=== PATIENT | female | born 1940 | race Caucasian/White ===

== ENCOUNTER 2018-12-05 20:38 | Emergency (ER) | payer OTHER, MEDICARE | END 2018-12-06 00:33 | disposition home or self-care (01) | LOC: JER 12-06 00:33 ==

== ENCOUNTER 2019-01-26 10:37 | Inpatient (IN) | payer OTHER, MEDICARE ==
--- NOTE | 2019-01-26 10:54 | PDOC ---
History of Present Illness - General Chief Complaint: Syncope/Near Syncope Stated Complaint: Syncope/Near Syncope - History of Present Illness Initial Comments: The pt is a 78F w/ a history of asthma, HTN, DM who presents for evaluation s/p syncopal fall. The pt reports she was washing dishes for 15min, walking back to her chair, became dizzy, and then fell to the floor and hit her head. She was then able to get up into the chair and call her son for help. She felt dizzy for about an hour after. She denies chest pain before/after the incident. Currently she denies dizziness, HERNÁNDEZ, neck pain, chest pain, trouble breathing, N/ V, or changes in sensation. 01/26/19 10:53 Past History - Past Medical History Allergies/Adverse Reactions: Allergies Allergy/AdvReac Type Severity Reaction Status Date / Time Penicillins AdvReac Verified 12/05/18 21:24 Home Medications: Ambulatory Orders Glipizide [Glipizide Xl] 0 mg PO DAILY 12/05/18 Hydrochlorothiazide [Hctz -] 25 mg PO DAILY 12/05/18 Metformin HCl [Metformin HCl ER] 500 mg PO DAILY 12/05/18 Metoprolol Succinate 100 mg PO DAILY 12/05/18 Asthma: Yes COPD: No Diabetes: Yes HTN: Yes - Psycho Social/Smoking Cessation Hx Smoking History: Former smoker Have you smoked in the past 12 months: No Hx Alcohol Use: No Drug/Substance Use Hx: No Review of Systems - Review of Systems Able to Perform ROS?: Yes Comments:: GENERAL/CONSTITUTIONAL: No fever or chills. No weakness HEAD, EYES, EARS, NOSE AND THROAT: No change in vision. No change in hearing. No sore throat CARDIOVASCULAR: No chest pain or shortness of breath RESPIRATORY: Denies cough, hemoptysis GASTROINTESTINAL: No nausea, vomiting, diarrhea or constipation GENITOURINARY: No dysuria, frequency, or change in urination MUSCULOSKELETAL: No joint or muscle swelling or pain. No neck or back pain SKIN: No rash NEUROLOGIC: No headache, or change in strength/sensation ENDOCRINE: No increased thirst. No abnormal weight change HEMATOLOGIC/LYMPHATIC: No anemia, easy bleeding, or history of blood clots ALLERGIC/IMMUNOLOGIC: No hives or skin allergy 01/26/19 10:53 Is the patient limited Israeli proficient: No *Physical Exam - Physical Exam Comments: GENERAL: Awake, alert, and oriented to person/place/time, in no acute distress HEAD: No signs of trauma, normocephalic, atraumatic EYES: PERRLA, EOMI, sclera anicteric, conjunctiva clear ENT: Hearing grossly normal, nares patent, oropharynx clear without exudates. No uvular deviation. Moist mucosa NECK: No CTL spine TTP LUNGS: No distress, speaks in full sentences, clear to auscultation bilaterally HEART: Regular rate and rhythm, normal S1 and S2, systolic murmur appreciated, peripheral pulses normal and equal bilaterally ABDOMEN: Soft, nontender, normoactive bowel sounds. No guarding, no rebound EXTREMITIES: Normal inspection, Normal range of motion, no edema. No clubbing or cyanosis NEUROLOGICAL: Cranial nerves II through XII grossly intact. Normal speech, no focal sensorimotor deficits SKIN: Warm, Dry 01/26/19 10:53 ED Treatment Course - LABORATORY CBC & Chemistry Diagram: 01/26/19 11:51 01/26/19 11:51 Medical Decision Making - Medical Decision Making The pt is a 78F w/ a history of asthma, HTN, DM who presents for evaluation s/p syncopal fall. ED Course CMP, CBC, Cardiac profile CXR ECG CT Head w/o 01/26/19 11:15 ECG w/ sinus bradycardia; HR 52; QTc 418; TWI in aVL; left axis deviation; no ADRIÁN 01/26/19 13:07 No leukocytosiso anemia Lytes wnl No JOHANNY LFTs wnl Trop I 0.24 BNP w/l CT head pending 01/26/19 13:11 CT head w/o acute bleed ASA 162mg PO once Plan for admission for syncope and troponinemia 01/26/19 14:15 Discharge - Discharge Information Problems reviewed: Yes Clinical Impression/Diagnosis: Elevated troponin Syncope Qualifiers: Syncope type: unspecified Qualified Code(s): R55 - Syncope and collapse Condition: Fair - Admission Yes - Follow up/Referral Referrals: Felipe Pollard MD [Primary Care Provider] - - Patient Discharge Instructions - Post Discharge Activity
--- NOTE | 2019-01-26 12:14 | PDOC ---
Attending Attestation - Resident Resident Name: Miguelangel Aponte - ED Attending Attestation I have performed the following: I have examined & evaluated the patient, The case was reviewed & discussed with the resident, I agree w/resident's findings & plan, Exceptions are as noted - HPI HPI: 01/26/19 12:13 Ms Noble is a 78-year-old female presenting to the emergency department via EMS status post a fall while at home. Patient has a history of hypertension, hyperlipidemia, diabetes. She woke in her usual state of health this morning, was washing dishes, and was about to go take her shower. Patient notes that she became vertiginous, and this improved briefly. She became vertiginous again and fell landing on her bottom, and then striking her head. No loss of consciousness. Mild nausea, no vomiting. No headache, no tinnitus. Patient states about last week she had some similar symptoms which lasted for several minutes but she was able to get herself to a seated position with no difficulty. Prior to this no prior episodes of vertigo or dizziness. No associated chest pain, shortness of breath, diaphoresis 01/26/19 12:14 - Physicial Exam PE: 01/26/19 12:15 GENERAL: The patient is in no acute distress. ENT: Ears normal, nares patent, oropharynx clear without exudates. Moist mucous membranes. NECK: Normal range of motion, supple LUNGS: Breath sounds equal, clear to auscultation bilaterally. No wheezes, and no crackles. HEART:Regular rate and rhythm, normal S1 and S2 without murmur, rub or gallop. ABDOMEN: Soft, nontender, normoactive bowel sounds. EXTREMITIES: Normal range of motion, no edema. NEUROLOGICAL: Cranial nerves II through XII grossly intact. Normal speech. No focal neurological deficits. No nystagmus Motor 5/5 all extremities No dysmetria or dysdiadokinesis SKIN: Warm, Dry, normal turgor, no rashes or lesions noted. 01/26/19 13:37 - Medical Decision Making 01/26/19 12:17 78-year-old female presents to the emergency department due to vertigo/ dizziness and a fall. No preceding chest pain or shortness of breath. No focal weakness or numbness. Patient's blood pressure notably elevated (son states she gets anxious at the hospital) Differential diagnosis is broad and includes Benign positional vertigo, Mnire's disease, posterior CVA, electrolyte abnormality, ACS, arrhythmia We will do: Labs EKG Chest x-ray CT head Admission EKG: Sinus rhythm, rate of 52 bpm, left axis deviation, no ST elevation or depression , T wave inversion noted in aVL 01/26/19 13:35 BP persistently 240/100 HR 50s Hydralazine ordered 01/26/19 13:37 Laboratory Tests 01/26/19 01/26/19 01/26/19 11:51 11:51 11:51 WBC 6.5 Hgb 12.9 Hct 39.7 Plt Count 209 PTT (Actin FS) 31.9 BUN Creatinine Creatine Kinase 55 Troponin I 0.24 H Urine Blood Urine Nitrite Ur Leukocyte Esterase 01/26/19 01/26/19 11:51 11:53 WBC Hgb Hct Plt Count PTT (Actin FS) BUN 26.2 H Creatinine 0.9 Creatine Kinase Troponin I Urine Blood Negative Urine Nitrite Negative Ur Leukocyte Esterase Negative Clinical impression: hypertensive urgency, initial presentation
[2019-01-26 12:30] LABS: BASO % 0.8 % (0-2.0); EOS % 0.4 % (0-4.5); HEMATOCRIT 39.7 % (32.4-45.2); HEMOGLOBIN 12.9 GM/dL (10.7-15.3); LYMPH % 13.7 % (8-40); MCH 27.3 pg (25.7-33.7); MCHC 32.4 g/dl (32.0-36.0); MEAN CELL VOLUME 84.3 fl (80-96); MEAN PLT VOLUME 8.9 fl (7.5-11.1); NEUT % 78.1 % (42.8-82.8); PLATELET COUNT 209 K/MM3 (134-434); RBC 4.71 M/mm3 (3.60-5.2); RDW 14.5 % (11.6-15.6); WHITE BLOOD COUNT 6.5 K/mm3 (4.0-10.0)
[2019-01-26] MEDS ORDERED: hydrALAZINE HCL 20 MG/ML VIAL IVPUSH ONE (12:51)
[2019-01-26 12:53] LABS: ALBUMIN 3.9 g/dl (3.4-5.0); BILIRUBIN,TOTAL 0.4 mg/dL (0.2-1); BLOOD UREA NITROGEN 26.2 mg/dL (7-18); CREATININE 0.9 mg/dL (0.55-1.3); POTASSIUM 4.3 mmol/L (3.5-5.1); TOT PROT 7.1 g/dl (6.4-8.2)
[2019-01-26] MEDS ORDERED: hydrALAZINE HCL 20 MG/ML VIAL ONE ×2 (12:53→20:29)
[2019-01-26 13:00] LABS: N-TERMINAL BNP 374.7 pg/ml (5-450)
[2019-01-26 13:02] LABS: PH,URINE 7.5 (5.0-8.0); URINE APPEARANCE CLEAR; URINE BILIRUBIN NEGATIVE (NEGATIVE); URINE COLOR YELLOW; URINE GLUCOSE (UA) NEGATIVE (NEGATIVE); URINE KETONE NEGATIVE (NEGATIVE); URINE LEUK ESTERASE NEGATIVE (NEGATIVE); URINE NITRITE NEGATIVE (NEGATIVE); URINE PROTEIN TRACE (NEGATIVE); URINE UROBILINOGEN 0.2 mg/dL (0.2-1.0)
[2019-01-26] MEDS ORDERED: ASPIRIN 81 MG CHEWABLE TABLETS ONE (14:36)
[2019-01-26] MEDS ORDERED: ASPIRIN 81 MG CHEWABLE TABLETS PO ONE (14:43)
[2019-01-26] MEDS ORDERED: hydrALAZINE HCL 20 MG/ML VIAL IVPUSH PRN (15:25)
[2019-01-26] MEDS ORDERED: ACETAMINOPHEN 325 MG TABLET (FP) PO PRN (15:27)
--- NOTE | 2019-01-26 15:34 | HP ---
CHIEF COMPLAINT: fall PCP: Dr. Calderon HISTORY OF PRESENT ILLNESS: Patient is a 78 y/o female with a history of asthma, HTN, and DM who presents s/ p fall. Patient states for the last few days she has been feeling dizzy and that she feels like she is spinning. These symptoms are worse with bending down and standing up. Patient takes her medications at 6 am. Around 9 am she was feeling dizzy so she went to sit on a chair, she feels that she misjudged the chair and fell back hitting her head and landing on the right side. She did not lose consciousness. Patient reports she has not had any other recent falls. Patient typically walks with a walker. She used to take her blood pressure but her machine broke this week. Patient reports when she visited her doctor she was told her blood pressure was good. Patient denies any recent sick contacts, dysuria, hematuria, nausea, chest pain, shortness of breath, or blurry vision. Patient does not follow with a pelletizer. ER course was notable for: (1) (2) (3) Recent Travel: PAST MEDICAL HISTORY: asthma, HTN, and DM PAST SURGICAL HISTORY: likely CABG( 11 years ago), per patient she had a blocked vessel, bladder lifting Social History: Smoking: denies Alcohol: denies Drugs: denies Allergies Penicillins Adverse Reaction (Verified 12/05/18 21:24) HOME MEDICATIONS: Home Medications Medication Instructions Recorded Glipizide [Glipizide Xl] 0 mg PO DAILY 12/05/18 Hydrochlorothiazide [Hctz -] 25 mg PO DAILY 12/05/18 Metformin HCl [Metformin HCl ER] 500 mg PO DAILY 12/05/18 Metoprolol Succinate 100 mg PO DAILY 12/05/18 REVIEW OF SYSTEMS CONSTITUTIONAL: Absent: fever, chills, diaphoresis, generalized weakness, malaise, loss of appetite, weight change HEENT: Absent: rhinorrhea, nasal congestion, throat pain, throat swelling, difficulty swallowing, mouth swelling, ear pain, eye pain, visual changes CARDIOVASCULAR: Absent: chest pain, syncope, palpitations, irregular heart rate, lightheadedness , peripheral edema RESPIRATORY: Absent: cough, shortness of breath, dyspnea with exertion, orthopnea, wheezing, stridor, hemoptysis GASTROINTESTINAL: Absent: abdominal pain, abdominal distension, nausea, vomiting, diarrhea, constipation, melena, hematochezia GENITOURINARY: Absent: dysuria, frequency, urgency, hesitancy, hematuria, flank pain, genital pain MUSCULOSKELETAL: Absent: myalgia, arthralgia, joint swelling, back pain, neck pain SKIN: Absent: rash, itching, pallor HEMATOLOGIC/IMMUNOLOGIC: Absent: easy bleeding, easy bruising, lymphadenopathy, frequent infections ENDOCRINE: Absent: unexplained weight gain, unexplained weight loss, heat intolerance, cold intolerance NEUROLOGIC: dizziness, Absent: headache, focal weakness or paresthesias, unsteady gait, seizure, mental status changes, bladder or bowel incontinence PSYCHIATRIC: Absent: anxiety, depression, suicidal or homicidal ideation, hallucinations. PHYSICAL EXAMINATION Vital Signs Temperature 98.7 F 01/26/19 10:40 Pulse Rate 54 L 01/26/19 12:50 Respiratory Rate 20 01/26/19 12:50 Blood Pressure 180/110 H 01/26/19 12:50 O2 Sat by Pulse Oximetry (%) 97 01/26/19 13:54 GENERAL: Awake, alert, and fully oriented, in no acute distress. HEAD: Normal with no signs of trauma. EYES: Pupils equal, round and reactive to light, extraocular movements intact, EARS, NOSE, THROAT: Moist mucous membranes. LUNGS: Breath sounds equal, clear to auscultation bilaterally. No wheezes, and no crackles. No accessory muscle use. HEART: Regular rate and rhythm, ABDOMEN: Soft, nontender, not distended, normoactive bowel sounds, no guarding, no rebound, no masses. MUSCULOSKELETAL: Normal range of motion at all joints. tenderness to palpation of R shoulder R hip and R knee, able to tolerate movement, knees large LOWER EXTREMITIES: 2+ pulses, warm, well-perfused. No peripheral edema. NEUROLOGICAL: Cranial nerves II-XII intact. PSYCHIATRIC: Cooperative. Good eye contact. Appropriate mood and affect. SKIN: lower extremity b/l skin changes, dark coloration without ulceration CBC, BMP 01/26/19 11:51 01/26/19 11:51 ASSESSMENT/PLAN: Patient is a 78 y/o female with a history of asthma, HTN, and DM who presents s/ p fall. #Fall - likely 2/2 to hypertensive urgency with mechanical fall, r/o ACS, vascular , hypoglycemia - Head CT: no evidence of hemorrhage, edema, no infarct noted - f/u echo, carotid US - f/u XR of R shoulder, hip, and knee - UA negative - closely control bp, patient likely needs additional medication as an outpatient - fall risk precautions #HTN urgency - likely causing dizziness - continue home metoprolol and HCTZ - Losartan 50 daily - hydralazine 10 prn - f/u cardio - f/u lipids #tropinemia - likely 2/2 to HTN urgency, patient asymptomatic - monitor trops, first .24, f/u second - ASA 162 given #DM - BGM ACHS - SS - monitor sugars closely, watch for hypoglycemia #DVT ppx - Lovenox 40 sq daily FEN - low sodium, diabetic diet Dispo: monitor on tele, f/u with PT to discuss dispo of patient Visit type - Emergency Visit Emergency Visit: Yes ED Registration Date: 01/26/19 Care time: The patient presented to the Emergency Department on the above date and was hospitalized for further evaluation of their emergent condition. - New Patient This patient is new to me today: Yes Date on this admission: 01/28/19 - Critical Care Critical Care patient: No ATTENDING PHYSICIAN STATEMENT I saw and evaluated the patient. I reviewed the resident's note and discussed the case with the resident. I agree with the resident's findings and plan as documented. SUBJECTIVE: OBJECTIVE: ASSESSMENT AND PLAN:
--- NOTE | 2019-01-26 15:38 | PN ---
Teaching Attending Note Name of Resident: Michell Shay ATTENDING PHYSICIAN STATEMENT I saw and evaluated the patient. I reviewed the resident's note and discussed the case with the resident. I agree with the resident's findings and plan as documented with exceptions below. SUBJECTIVE: 78 yof with PMhx of HTN, ?CAD s/p CABG 12 years ago, NIDDM, obesity, Thyroid nodule, peripheral neuropathy comes with 3 days of dizziness. Reports intermittent spinning sensation more with change in position and bending over. Today had similar symptoms while bending over, when fell on her right side on the floor, called 911. Denies any chest pain, palpitations, dyspnea, fevers, chills, recent URI like illness, poor oral intake, abdominal or urinary symptoms. Denies any h/o exertional chest pain or dyspnea, orthopnea, PND, leg swelling. Also reports snoring at night but no prior sleep study. Prior ED visit in 11/2018 with nose bleed, when noted with SBP 190s-200s. OBJECTIVE: Vital Signs Period Temp Pulse Resp BP Sys/Pruitt Pulse Ox Last 24 Hr 98.7 F 54-57 16-20 180-247/81-120 97-100 Intake & Output 01/23/19 01/24/19 01/25/19 01/26/19 23:59 23:59 23:59 23:59 Weight 180 lb GENERAL: Awake, alert, and fully oriented, in no acute distress. HEAD: Normal with no signs of trauma. EYES: Pupils equal, round and reactive to light, extraocular movements intact, sclera anicteric, conjunctiva clear. No lid lag. EARS, NOSE, THROAT: Ears normal, nares patent, oropharynx clear without exudates. Moist mucous membranes. NECK: Normal range of motion, supple, no JVD noted LUNGS: Breath sounds equal, clear to auscultation bilaterally. No wheezes, and no crackles. No accessory muscle use. HEART: Regular rate and rhythm, normal S1 and S2 ABDOMEN: Soft, obese, NT throughout, no voluntary or involuntary guarding or rigidity, pos bowel sounds MUSCULOSKELETAL: some pain with right shoulder and right knee movements, but full ROM right shoulder, limitation bilateral knee ROm (chronic from arthritis per patient), pos DP pulses UPPER EXTREMITIES: 2+ pulses, warm, well-perfused. No cyanosis. No clubbing. No peripheral edema. LOWER EXTREMITIES: 1+ non pitting LE edema with varicosities and chronic hyperpigmentation with stasis dermatitis NEUROLOGICAL: AAox3, power 5/5 except right knee limited by pain, facial symmetry, Cranial nerves II-XII intact. Normal speech. PSYCHIATRIC: Cooperative. Good eye contact. Appropriate mood and affect. SKIN: Warm, dry, normal turgor, no rashes or lesions noted, normal capillary refill. Home Medications Medication Instructions Recorded Glipizide [Glipizide Xl] 0 mg PO DAILY 12/05/18 Hydrochlorothiazide [Hctz -] 25 mg PO DAILY 12/05/18 Metformin HCl [Metformin HCl ER] 500 mg PO DAILY 12/05/18 Metoprolol Succinate 100 mg PO DAILY 12/05/18 Glimepiride 2 mg PO DAILY 01/26/19 Metformin HCl [Glucophage] 1,000 mg PO DAILY 01/26/19 Active Medications Acetaminophen (Tylenol -) 650 mg PO Q6H PRN PRN Reason: PAIN LEVEL 6-10 Enoxaparin Sodium (Lovenox -) 40 mg SQ DAILY [place] Hydralazine HCl (Apresoline Injection -) 10 mg IVPUSH Q6H PRN PRN Reason: HYPERTENSION Insulin Aspart (Novolog Vial Sliding Scale -) 0 vial SQ ACHS [place]; Protocol Losartan Potassium (Cozaar -) 50 mg PO DAILY [place] Laboratory Results - last 24 hr 01/26/19 01/26/19 01/26/19 11:14 11:51 11:51 WBC RBC Hgb Hct MCV MCH MCHC RDW Plt Count MPV Absolute Neuts (auto) Neutrophils % Lymphocytes % Monocytes % Eosinophils % Basophils % Nucleated RBC % PTT (Actin FS) 31.9 Sodium Potassium Chloride Carbon Dioxide Anion Gap BUN Creatinine Est GFR (CKD-EPI)AfAm Est GFR (CKD-EPI)NonAf POC Glucometer 133 Random Glucose Calcium Total Bilirubin AST ALT Alkaline Phosphatase Creatine Kinase 55 Troponin I 0.24 H B-Natriuretic Peptide 374.7 Total Protein Albumin Urine Color Urine Appearance Urine pH Ur Specific [place] Urine Protein Urine Glucose (UA) Urine Ketones Urine Blood Urine Nitrite Urine Bilirubin Urine Urobilinogen Ur Leukocyte Esterase 01/26/19 01/26/19 01/26/19 11:51 11:51 11:53 WBC 6.5 RBC 4.71 Hgb 12.9 Hct 39.7 MCV 84.3 MCH 27.3 MCHC 32.4 RDW 14.5 Plt Count 209 MPV 8.9 Absolute Neuts (auto) 5.1 Neutrophils % 78.1 Lymphocytes % 13.7 Monocytes % 7.0 Eosinophils % 0.4 Basophils % 0.8 Nucleated RBC % 0 PTT (Actin FS) Sodium 139 Potassium 4.3 Chloride 104 Carbon Dioxide 29 Anion Gap 6 L BUN 26.2 H Creatinine 0.9 Est GFR (CKD-EPI)AfAm 71.98 Est GFR (CKD-EPI)NonAf 62.11 POC Glucometer Random Glucose 136 H Calcium 9.0 Total Bilirubin 0.4 AST 11 L ALT 15 Alkaline Phosphatase 79 Creatine Kinase Troponin I B-Natriuretic Peptide Total Protein 7.1 Albumin 3.9 Urine Color Yellow Urine Appearance Clear Urine pH 7.5 Ur Specific [place] 1.004 L Urine Protein Trace Urine Glucose (UA) Negative Urine Ketones Negative Urine Blood Negative Urine Nitrite Negative Urine Bilirubin Negative Urine Urobilinogen 0.2 Ur Leukocyte Esterase Negative EKG: NSR, LVH, T inversion in aVL CXR/CT brain results reviewed ASSESSMENT AND PLAN: 78 yof with PMhx of HTN, ?CAD s/p CABG 12 years ago, NIDDM, obesity, Thyroid nodule, peripheral neuropathy admitted with vertigo, hypertensive urgency and elevated troponin -Hypertensive urgency -Elevated troponin, demand from above, vs r/o ACS -Vertigo/dizziness, suspect from above, rather than vertiginous or neurological process -?CAD s/p CABG 12 years ago -NIDDM -Obesity -Thyroid nodule -Peripheral neuropathy Plan: Prior ED visit noted with uncontrolled BP. Unclear if has poorly controlled BP though patient denies. Currently asymptomatic, would avoid aggressive control unless new concerns. continue Toprol XL/HCTZ. Start losartan 50 mg daily. Hydralazine prn Recommended outpatient sleep study. telemetry, cycle troponin, Cardiology consult, 2D echo. Continue ASA. Check lipid panel. Neuro checks Right shoulder/Right knee xrays, Fall precautions, PT eval. ISS, hold oral hypoglycemics DVTPPX lovenox Dispo pending clinical improvement. Plan discussed with patient and son at bedside in detail, all questions answered Care co-ordinated with ED total admit time 65 min
[2019-01-26] MEDS: LOSARTAN POTASSIUM 50 MG TABLET (FP) PO SCH (16:40)
[2019-01-26] MEDS ORDERED: LOSARTAN POTASSIUM 50 MG TABLET (FP) ONE (16:42)
--- NOTE | 2019-01-26 16:49 | EKG ---
Test Reason : Blood Pressure : / mmHG Vent. Rate : 052 BPM Atrial Rate : 052 BPM P-R Int : 162 ms QRS Dur : 088 ms QT Int : 450 ms P-R-T Axes : 018 -32 072 degrees QTc Int : 418 ms SINUS BRADYCARDIA LEFT AXIS DEVIATION MODERATE VOLTAGE CRITERIA FOR LVH, MAY BE NORMAL VARIANT ABNORMAL ECG WHEN COMPARED WITH ECG OF 13-FEB-2006 01:06, VENT. RATE HAS DECREASED BY 33 BPM Confirmed by RAINA NORTON, FRANSICO ([id number]) on 01/26/2019 4:49:03 PM Referred By: Confirmed By:FRANSICO PARIS MD
[2019-01-26] MEDS: INSULIN SLIDING SCALE (NOVOLOG) 1 VIAL SQ SCH ×2 (18:37→22:57)
--- NOTE | 2019-01-26 21:10 | CON.CARD ---
Consult Consult Specialty:: Cardiology Referred by:: Hospitalist Reason for Consultation:: Cardiac evaluation - History of Present Illness Chief Complaint: Post fall History of Present Illness: Patient is a 78 year old female with underlying history of CAD s/p CABG at [facility], HTN, DM and history of bronchial asthma who presents after a fall hitting her occipital head onto the floor. She states that she felt dizzy just prior to the fall. She denies LOC. She denies chest pain, shortness of breath or palpitations. She denies paroxysmal nocturnal dyspnea or orthopnea. She denies fever or chills. She denies nausea, vomiting, diarrhea or abdominal pain. She denies headache or lightheadedness at this time. She denies prior syncopal episodes. - History Source History Provided By: Patient, Family Member Limitations to Obtaining History: No Limitations - Past Medical History Cardio/Vascular: Yes: CAD, HTN Pulmonary: Yes: Asthma Endocrine: Yes: Diabetes Mellitus - Past Surgical History Past Surgical History: Yes: CABG - Alcohol/Substance Use Hx Alcohol Use: No - Smoking History Smoking history: Former smoker Have you smoked in the past 12 months: No Home Medications - Allergies Allergies/Adverse Reactions: Allergies Allergy/AdvReac Type Severity Reaction Status Date / Time Penicillins AdvReac Verified 12/05/18 21:24 - Home Medications Home Medications: Ambulatory Orders Hydrochlorothiazide [Hctz -] 25 mg PO DAILY 12/05/18 Metoprolol Succinate 100 mg PO DAILY 12/05/18 Glimepiride 2 mg PO DAILY 01/26/19 Meloxicam 15 mg PO DAILY 01/26/19 Metformin HCl [Glucophage] 1,000 mg PO DAILY 01/26/19 Olopatadine HCl [Pazeo] 2.5 ml DAILY 01/26/19 Review of Systems - Review of Systems Constitutional: denies: Chills, Fever Cardiovascular: denies: Chest Pain, Palpitations, Shortness of Breath Respiratory: denies: Cough, Hemoptysis, Orthopnea, PND, SOB, SOB on Exertion, Wheezing Gastrointestinal: denies: Abdominal Pain, Constipation, Diarrhea, Melena, Nausea , Rectal Bleeding, Vomiting Genitourinary: denies: Dysuria, Hematuria Musculoskeletal: denies: Back Pain Neurological: denies: Dizziness, Headache, Seizure, Syncope Vital Signs: Vital Signs Temperature 98.7 F 01/26/19 10:40 Pulse Rate 65 01/26/19 20:43 Respiratory Rate 20 01/26/19 20:43 Blood Pressure 161/68 01/26/19 20:43 O2 Sat by Pulse Oximetry (%) 97 01/26/19 20:43 Eyes: Yes: PERRL HENT: Yes: Atraumatic Neck: Yes: Supple Respiratory: Yes: CTA Bilaterally Gastrointestinal: Yes: Normal Bowel Sounds, Soft. No: Tenderness Cardiovascular: Yes: Regular Rate and Rhythm JVD: No PMI: Non-Displaced Heart Sounds: Yes: S1, S2. No: Gallop Murmur: Yes: Systolic Murmur, Grade 1 Edema: No - Other Data Labs, Other Data: CBC, BMP 01/26/19 11:51 01/26/19 11:51 Troponin, BNP 01/26/19 01/26/19 11:51 18:00 Troponin I 0.24 H 0.24 H B-Natriuretic Peptide 374.7 Sinus bradycardia, LVH Echo: Pending Imaging - Results Chest X-ray: Report Reviewed (Unremarkable) X-ray: Report Reviewed (No fractures) Cat Scan: Report Reviewed (Head CT unremarkable) EKG: Report Reviewed Problem List - Problems (1) Demand ischemia Code(s): I24.8 - OTHER FORMS OF ACUTE ISCHEMIC HEART DISEASE (2) CAD (coronary artery disease) Code(s): I25.10 - ATHSCL HEART DISEASE OF [place] CORONARY ARTERY W/O ANG PCTRS (3) H/O coronary artery bypass surgery Code(s): Z95.1 - PRESENCE OF AORTOCORONARY BYPASS GRAFT (4) Diabetes mellitus Code(s): E11.9 - TYPE 2 DIABETES MELLITUS WITHOUT COMPLICATIONS (5) Bronchial asthma Code(s): J45.909 - UNSPECIFIED ASTHMA, UNCOMPLICATED (6) Elevated troponin Code(s): R79.89 - OTHER SPECIFIED ABNORMAL FINDINGS OF BLOOD CHEMISTRY Assessment/Plan 1. Post mechanical fall with no visible injury, denies LOC, doubt syncope 2. CAD s/p CABG, angina pectoris 3. HTN 4. DM 5. History of bronchial asthma 6. Demand ischemia PLAN: 1. Serial cardiac enzyme. Document troponin peak 2. Echocardiography to assess LV/RV and valvular function 3. Continue Metoprolol ER 100 mg QD and uptitrate Losartan (currently 50 mg QD) 4. ASA 5. Continue HCTZ as tolerated 6. Obtain Hgb A1C and fasting lipid panel 7. Statin if clinically indicated 8. DVT prophylaxis 9. Further cardiac workup can be followed as outpatient Dave Mohr MD
[2019-01-27 02:32] VITALS: BMI 26.1
[2019-01-27] MEDS: INSULIN SLIDING SCALE (NOVOLOG) 1 VIAL SQ SCH ×4 (06:20→21:20)
[2019-01-27 06:35] LABS: HEMATOCRIT 37.4 % (32.4-45.2); HEMOGLOBIN 12.4 GM/dL (10.7-15.3); MCH 27.6 pg (25.7-33.7); MCHC 33.3 g/dl (32.0-36.0); MEAN PLT VOLUME 8.2 fl (7.5-11.1); PLATELET COUNT 194 K/MM3 (134-434); RDW 14.4 % (11.6-15.6); WHITE BLOOD COUNT 6.9 K/mm3 (4.0-10.0)
[2019-01-27 07:02] LABS: ALBUMIN 3.3 g/dl (3.4-5.0); BILIRUBIN,TOTAL 0.5 mg/dL (0.2-1); BLOOD UREA NITROGEN 31.7 mg/dL (7-18); CALCIUM 8.5 mg/dL (8.5-10.1); CHOLESTEROL 203 mg/dL (50-200); CREATININE 1.1 mg/dL (0.55-1.3); HDL CHOLESTEROL 36 mg/dL (40-60); LDL CHOLESTEROL (ONLY SJRH) 136 mg/dL (5-100); MAGNESIUM 2.4 mg/dL (1.8-2.4); PHOSPHOROUS 3.4 mg/dL (2.5-4.9); POTASSIUM 3.9 mmol/L (3.5-5.1); TRIGLYCERIDES 145 mg/dL (0-150)
[2019-01-27] MEDS: HYDROCHLOROTHIAZIDE 25 MG TABLET (FP) PO SCH (09:00)
[2019-01-27] MEDS: ASPIRIN 81 MG CHEWABLE TABLETS PO SCH (09:00)
[2019-01-27] MEDS: LOSARTAN POTASSIUM 50 MG TABLET (FP) PO SCH (09:00)
[2019-01-27] MEDS: ENOXAPARIN NA (PORCINE) 40 MG/0.4 ML DISP.SYRIN SQ SCH (09:01)
[2019-01-27] MEDS ORDERED: FLU VACCINE QUAD 60 MCG/0.5 ML (MDV 19-20) IM ONE (10:00)
--- NOTE | 2019-01-27 10:52 | ECHO ---
Version: 1 Name: VELASQUEZ MARTINEZ Exam: Adult Echocardiogram Study Date: 01/27/2019, 9:40 AM Age: 78 Years MMode/2D Measurements & Calculations IVSd: 1.48 cm LVIDs: 2.45 cm LVIDd: 3.5 cm LVPWd: 1.36 cm LAV (MOD-bp): 37.2 ml LVOT diam: 2.04 cm Ao root diam: 2.46 cm LA dimension: 3.6 cm Doppler Measurements & Calculations MV E max nikolay: 47.4 cm/sec MV V2 max: 115.4 cm/sec MV A max nikolay: 85.9 cm/sec MV max P.3 mmHg MV mean P.8 mmHg Med E/e': 10.3 MV E/A: 0.55 Med Peak E' Nikolay: 4.6 cm/sec Lat E/e': 7.6 Lat Peak E' Nikolay: 6.2 cm/sec Ao max P.8 mmHg Ao mean P.3 mmHg Ao V2 max: 222.6 cm/sec Procedure The study was technically limited with all images being suboptimal in quality. Left Ventricle moderate concentric LVH. Left ventricular systolic function is normal. Ejection Fraction = 65%. The transmitral spectral Doppler flow pattern is suggestive of impaired LV relaxation. Right Ventricle The right ventricle is normal in size and function. Atria Normal left and right atrial size and function. Mitral Valve There is mild mitral annular calcification. There is mild mitral regurgitation. Tricuspid Valve The tricuspid valve is not well visualized. There is mild tricuspid regurgitation. Aortic Valve There is moderate aortic sclerosis.;. Pulmonic Valve The pulmonic valve is not well visualized. Great Vessels The aortic root is normal size. Normal aortic arch, descending and ascending aorta. Pericardium/Pleura There is no pericardial effusion. Summary Statements The study was technically limited with all images being suboptimal in quality. Left ventricular systolic function is normal. Ejection Fraction = 65%. The transmitral spectral Doppler flow pattern is suggestive of impaired LV relaxation. The right ventricle is normal in size and function. Normal left and right atrial size and function. There is mild mitral annular calcification. There is mild mitral regurgitation. The tricuspid valve is not well visualized. There is mild tricuspid regurgitation. There is moderate aortic sclerosis.; The pulmonic valve is not well visualized. The aortic root is normal size. Normal aortic arch, descending and ascending aorta There is no pericardial effusion. [place] Dejesus 01/27/2019, 9:51 AM Ordering Physician: FREDIS BERNARD Performed By: Jessie Perdue
--- NOTE | 2019-01-27 11:18 | PN ---
Progress Note, Physician Chief Complaint: Not in distress History of Present Illness: Patient was seen and examined. Awake and alert. Chart was reviewed Denies chest pain, SOB or palpitations - Current Medication List Current Medications: Active Medications Acetaminophen (Tylenol -) 650 mg PO Q6H PRN PRN Reason: PAIN LEVEL 6-10 Aspirin (Asa -) 81 mg PO DAILY [facility] Last Admin: 01/27/19 09:00 Dose: 81 mg Enoxaparin Sodium (Lovenox -) 40 mg SQ DAILY [facility] Last Admin: 01/27/19 09:01 Dose: 40 mg Hydralazine HCl (Apresoline Injection -) 10 mg IVPUSH Q6H PRN PRN Reason: HYPERTENSION Last Admin: 01/26/19 20:44 Dose: 10 mg Hydrochlorothiazide (Hctz -) 25 mg PO DAILY [facility] Last Admin: 01/27/19 09:00 Dose: 25 mg Insulin Aspart (Novolog Vial Sliding Scale -) 1 vial SQ [facility]; Protocol Last Admin: 01/27/19 06:20 Dose: Not Given Losartan Potassium (Cozaar -) 50 mg PO DAILY [facility] Last Admin: 01/27/19 09:00 Dose: 50 mg Metoprolol Succinate (Toprol Xl -) 100 mg PO DAILY [facility] Last Admin: 01/27/19 09:01 Dose: 100 mg - Objective Vital Signs: Vital Signs Temperature 98.7 F 01/27/19 06:00 Pulse Rate 67 01/27/19 06:00 Respiratory Rate 18 01/27/19 07:54 Blood Pressure 150/77 01/27/19 06:00 O2 Sat by Pulse Oximetry (%) 97 01/27/19 07:54 Eyes: Yes: PERRL HENT: Yes: Atraumatic Neck: Yes: Supple Cardiovascular: Yes: Regular Rate and Rhythm, S1, S2. No: Murmur Respiratory: Yes: CTA Bilaterally Gastrointestinal: Yes: Normal Bowel Sounds, Soft. No: Tenderness Edema: No Additional Findings/Remarks: - Review of Systems Constitutional: denies: Chills, Fever Cardiovascular: denies: Chest Pain, Palpitations, Shortness of Breath Respiratory: denies: Cough, Hemoptysis, Orthopnea, PND, SOB, SOB on Exertion, Wheezing Gastrointestinal: denies: Abdominal Pain, Constipation, Diarrhea, Melena, Nausea , Rectal Bleeding, Vomiting Genitourinary: denies: Dysuria, Hematuria Musculoskeletal: denies: Back Pain Neurological: denies: Dizziness, Headache, Seizure, Syncope Labs: CBC, BMP 01/27/19 06:05 01/27/19 06:05 Problem List - Problems (1) Demand ischemia Code(s): I24.8 - OTHER FORMS OF ACUTE ISCHEMIC HEART DISEASE (2) CAD (coronary artery disease) Code(s): I25.10 - ATHSCL HEART DISEASE OF [place] CORONARY ARTERY W/O ANG PCTRS (3) H/O coronary artery bypass surgery Code(s): Z95.1 - PRESENCE OF AORTOCORONARY BYPASS GRAFT (4) Diabetes mellitus Code(s): E11.9 - TYPE 2 DIABETES MELLITUS WITHOUT COMPLICATIONS (5) Bronchial asthma Code(s): J45.909 - UNSPECIFIED ASTHMA, UNCOMPLICATED (6) Elevated troponin Code(s): R79.89 - OTHER SPECIFIED ABNORMAL FINDINGS OF BLOOD CHEMISTRY Assessment/Plan 1. Post mechanical fall with no visible injury, denies LOC 2. CAD s/p CABG, angina pectoris 3. HTN 4. DM 5. History of bronchial asthma 6. Demand ischemia PLAN: 1. Serial cardiac enzyme. Document troponin peak (0,24 now 0.21) 2. Echocardiography to assess LV/RV and valvular function 3. Continue Metoprolol ER 100 mg QD and uptitrate Losartan (currently 50 mg QD) 4. ASA 5. Continue HCTZ as tolerated 6. Rosuvastatin 7. DVT prophylaxis 8. Further cardiac workup can be followed as outpatient Dave Mohr MD
--- NOTE | 2019-01-27 11:41 | PN ---
Teaching Attending Note Name of Resident: Korey Bryant ATTENDING PHYSICIAN STATEMENT I saw and evaluated the patient. I reviewed the resident's note and discussed the case with the resident. I agree with the resident's findings and plan as documented with exceptions below. SUBJECTIVE: Patient seen and examined. No further dizziness. Doing well, worked with PT, no new chest pain or concerns. OBJECTIVE: Vital Signs Period Temp Pulse Resp BP Sys/Pruitt Pulse Ox Last 24 Hr 98 F-98.9 F 54-67 18-22 146-247/63-110 95-98 Intake & Output 01/24/19 01/25/19 01/26/19 01/27/19 23:59 23:59 23:59 23:59 Intake Total 100 Balance 100 Weight 187 lb 0.8 oz general: sitting in bed in no acute distress Neck: soft, supple Chest: CTAB, no rales or wheezing Abdomen:Soft, obese, NT Extremities: no edema Home Medications Medication Instructions Recorded Hydrochlorothiazide [Hctz -] 25 mg PO DAILY 12/05/18 Metoprolol Succinate 100 mg PO DAILY 12/05/18 Glimepiride 2 mg PO DAILY 01/26/19 Meloxicam 15 mg PO DAILY 01/26/19 Metformin HCl [Glucophage] 1,000 mg PO DAILY 01/26/19 Olopatadine HCl [Pazeo] 2.5 ml DAILY 01/26/19 Active Medications Acetaminophen (Tylenol -) 650 mg PO Q6H PRN PRN Reason: PAIN LEVEL 6-10 Aspirin (Asa -) 81 mg PO DAILY [facility] Last Admin: 01/27/19 09:00 Dose: 81 mg Enoxaparin Sodium (Lovenox -) 40 mg SQ DAILY [facility] Last Admin: 01/27/19 09:01 Dose: 40 mg Hydralazine HCl (Apresoline Injection -) 10 mg IVPUSH Q6H PRN PRN Reason: HYPERTENSION Last Admin: 01/26/19 20:44 Dose: 10 mg Hydrochlorothiazide (Hctz -) 25 mg PO DAILY [facility] Last Admin: 01/27/19 09:00 Dose: 25 mg Insulin Aspart (Novolog Vial Sliding Scale -) 1 vial SQ [facility]; Protocol Last Admin: 01/27/19 06:20 Dose: Not Given Losartan Potassium (Cozaar -) 50 mg PO DAILY [facility] Last Admin: 01/27/19 09:00 Dose: 50 mg Metoprolol Succinate (Toprol Xl -) 100 mg PO DAILY [facility] Last Admin: 01/27/19 09:01 Dose: 100 mg Laboratory Results - last 24 hr 01/26/19 01/26/19 01/26/19 11:51 11:51 11:51 WBC 6.5 RBC 4.71 Hgb 12.9 Hct 39.7 MCV 84.3 MCH 27.3 MCHC 32.4 RDW 14.5 Plt Count 209 MPV 8.9 Absolute Neuts (auto) 5.1 Neutrophils % 78.1 Lymphocytes % 13.7 Monocytes % 7.0 Eosinophils % 0.4 Basophils % 0.8 Nucleated RBC % 0 PTT (Actin FS) 31.9 Sodium Potassium Chloride Carbon Dioxide Anion Gap BUN Creatinine Est GFR (CKD-EPI)AfAm Est GFR (CKD-EPI)NonAf POC Glucometer Random Glucose Hemoglobin A1c % Calcium Phosphorus Magnesium Total Bilirubin AST ALT Alkaline Phosphatase Creatine Kinase 55 Troponin I 0.24 H B-Natriuretic Peptide 374.7 Total Protein Albumin Triglycerides Cholesterol Total LDL Cholesterol HDL Cholesterol Urine Color Urine Appearance Urine pH Ur Specific [place] Urine Protein Urine Glucose (UA) Urine Ketones Urine Blood Urine Nitrite Urine Bilirubin Urine Urobilinogen Ur Leukocyte Esterase 01/26/19 01/26/19 01/26/19 11:51 11:53 18:00 WBC RBC Hgb Hct MCV MCH MCHC RDW Plt Count MPV Absolute Neuts (auto) Neutrophils % Lymphocytes % Monocytes % Eosinophils % Basophils % Nucleated RBC % PTT (Actin FS) Sodium 139 Potassium 4.3 Chloride 104 Carbon Dioxide 29 Anion Gap 6 L BUN 26.2 H Creatinine 0.9 Est GFR (CKD-EPI)AfAm 71.98 Est GFR (CKD-EPI)NonAf 62.11 POC Glucometer Random Glucose 136 H Hemoglobin A1c % Calcium 9.0 Phosphorus Magnesium Total Bilirubin 0.4 AST 11 L ALT 15 Alkaline Phosphatase 79 Creatine Kinase Troponin I 0.24 H B-Natriuretic Peptide Total Protein 7.1 Albumin 3.9 Triglycerides Cholesterol Total LDL Cholesterol HDL Cholesterol Urine Color Yellow Urine Appearance Clear Urine pH 7.5 Ur Specific [place] 1.004 L Urine Protein Trace Urine Glucose (UA) Negative Urine Ketones Negative Urine Blood Negative Urine Nitrite Negative Urine Bilirubin Negative Urine Urobilinogen 0.2 Ur Leukocyte Esterase Negative 01/26/19 01/26/19 01/27/19 18:30 21:38 01:15 WBC RBC Hgb Hct MCV MCH MCHC RDW Plt Count MPV Absolute Neuts (auto) Neutrophils % Lymphocytes % Monocytes % Eosinophils % Basophils % Nucleated RBC % PTT (Actin FS) Sodium Potassium Chloride Carbon Dioxide Anion Gap BUN Creatinine Est GFR (CKD-EPI)AfAm Est GFR (CKD-EPI)NonAf POC Glucometer 190 180 Random Glucose Hemoglobin A1c % Calcium Phosphorus Magnesium Total Bilirubin AST ALT Alkaline Phosphatase Creatine Kinase Troponin I 0.21 H B-Natriuretic Peptide Total Protein Albumin Triglycerides Cholesterol Total LDL Cholesterol HDL Cholesterol Urine Color Urine Appearance Urine pH Ur Specific [place] Urine Protein Urine Glucose (UA) Urine Ketones Urine Blood Urine Nitrite Urine Bilirubin Urine Urobilinogen Ur Leukocyte Esterase 01/27/19 01/27/19 01/27/19 06:05 06:05 06:05 WBC 6.9 RBC 4.50 Hgb 12.4 Hct 37.4 MCV 83.0 MCH 27.6 MCHC 33.3 RDW 14.4 Plt Count 194 MPV 8.2 Absolute Neuts (auto) Neutrophils % Lymphocytes % Monocytes % Eosinophils % Basophils % Nucleated RBC % PTT (Actin FS) Sodium 141 Potassium 3.9 Chloride 107 Carbon Dioxide 29 Anion Gap 5 L BUN 31.7 H Creatinine 1.1 Est GFR (CKD-EPI)AfAm 56.48 Est GFR (CKD-EPI)NonAf 48.73 POC Glucometer Random Glucose 116 H Hemoglobin A1c % Calcium 8.5 Phosphorus 3.4 Magnesium 2.4 Total Bilirubin 0.5 AST 9 L ALT 13 Alkaline Phosphatase 67 Creatine Kinase Troponin I B-Natriuretic Peptide Total Protein 6.0 L Albumin 3.3 L Triglycerides 145 Cholesterol 203 H Total LDL Cholesterol 136 H HDL Cholesterol 36 L Urine Color Urine Appearance Urine pH Ur Specific [place] Urine Protein Urine Glucose (UA) Urine Ketones Urine Blood Urine Nitrite Urine Bilirubin Urine Urobilinogen Ur Leukocyte Esterase 01/27/19 01/27/19 06:05 06:19 WBC RBC Hgb Hct MCV MCH MCHC RDW Plt Count MPV Absolute Neuts (auto) Neutrophils % Lymphocytes % Monocytes % Eosinophils % Basophils % Nucleated RBC % PTT (Actin FS) Sodium Potassium Chloride Carbon Dioxide Anion Gap BUN Creatinine Est GFR (CKD-EPI)AfAm Est GFR (CKD-EPI)NonAf POC Glucometer 122 Random Glucose Hemoglobin A1c % 7.0 H Calcium Phosphorus Magnesium Total Bilirubin AST ALT Alkaline Phosphatase Creatine Kinase Troponin I B-Natriuretic Peptide Total Protein Albumin Triglycerides Cholesterol Total LDL Cholesterol HDL Cholesterol Urine Color Urine Appearance Urine pH Ur Specific [place] Urine Protein Urine Glucose (UA) Urine Ketones Urine Blood Urine Nitrite Urine Bilirubin Urine Urobilinogen Ur Leukocyte Esterase Microbiology 01/26/19 11:51 Urine - Urine Clean Catch Urine Culture - Preliminary Non Lactose Fermenting Gnb Right shoulder/knee/hip xray results noted. Telemetry no events 2D echo results reviewed Carotid duplex results reviewed ASSESSMENT AND PLAN: 78 yof with PMhx of HTN, ?CAD s/p CABG 12 years ago, NIDDM, obesity, Thyroid nodule, peripheral neuropathy admitted with vertigo, hypertensive urgency and elevated troponin -Hypertensive urgency -Elevated troponin, demand from above, vs r/o ACS -Vertigo/dizziness, suspect from above, rather than vertiginous or neurological process -?CAD s/p CABG 12 years ago -NIDDM -Obesity -Thyroid nodule -Peripheral neuropathy Plan: BP improved. Continue toprol XL/HCTZ. started losartan 50 mg daily, continue trop flat, cardiology input/2D echo noted. Lipid panel noted, start crestor 20 mg daily , patient counseled on medication side effects including myalgias, cramps, abnormal liver test and to notify PMD if any of the same noted. ISS,resume oral hypoglycemics on dc traum w/u neg, PT eval noted, Patient interested in SNF vs home with services, discussed with social work. DVTPPX lovenox Dispo dc in 24 hours home with services vs SNF if clinically improved and no new concerns. Discussed with patient, daughter at bedside, nursing and social work.
[2019-01-27] MEDS ORDERED: ASPIRIN 81 MG CHEWABLE TABLETS PO ONE (14:07)
--- NOTE | 2019-01-27 15:52 | EKG ---
Test Reason : Blood Pressure : / mmHG Vent. Rate : 063 BPM Atrial Rate : 063 BPM P-R Int : 172 ms QRS Dur : 078 ms QT Int : 440 ms P-R-T Axes : 034 -47 070 degrees QTc Int : 450 ms NORMAL SINUS RHYTHM LEFT ANTERIOR FASCICULAR BLOCK CANNOT RULE OUT INFERIOR INFARCT (MASKED BY FASCICULAR BLOCK?) , AGE UNDETERMINED ABNORMAL ECG WHEN COMPARED WITH ECG OF 26-JAN-2019 12:05, NONSPECIFIC T WAVE ABNORMALITY, WORSE IN LATERAL LEADS Confirmed by Jamin Ramos ([id number]) on 01/27/2019 3:52:17 PM Referred By: Confirmed By:Jamin Ramos
--- NOTE | 2019-01-27 17:46 | PN ---
Physical Exam: SUBJECTIVE: Patient seen and examined. NAEON Tolerating diet w/o issues Denies HERNÁNDEZ, dizziness, blurry vision, CP, palpitations OBJECTIVE: Vital Signs Period Temp Pulse Resp BP Sys/Pruitt Pulse Ox Last 24 Hr 98 F-98.9 F 64-71 18-20 135-175/63-101 95-98 GENERAL: The patient is awake, alert. NAD. HEAD: NC. No palpable scalp hematoma EYES: sclera anicteric, conjunctiva w/o pallor ENT: Ears normal, nares patent, moist mucous membranes. NECK: Trachea midline, full range of motion, supple. LUNGS: Breath sounds equal, clear to auscultation bilaterally, no wheezes, no crackles, no accessory muscle use. HEART: Regular rate and rhythm, S1, S2 without murmur, rub or gallop. ABDOMEN: Soft, nontender, nondistended, no guarding, no rebound. EXTREMITIES: 2+ pulses, warm, well-perfused BUE. Right lateral forearm with > 10cm pendulous mass w/o discrete areas of firmness/nodularity nor clear boundaries NEUROLOGICAL: Normal speech, gait not observed. PSYCH: Normal mood, normal affect. SKIN: Warm, dry, normal turgor, no rashes or lesions noted Laboratory Results - last 24 hr 01/26/19 01/26/19 01/26/19 18:00 18:30 21:38 WBC RBC Hgb Hct MCV MCH MCHC RDW Plt Count MPV Sodium Potassium Chloride Carbon Dioxide Anion Gap BUN Creatinine Est GFR (CKD-EPI)AfAm Est GFR (CKD-EPI)NonAf POC Glucometer 190 180 Random Glucose Hemoglobin A1c % Calcium Phosphorus Magnesium Total Bilirubin AST ALT Alkaline Phosphatase Troponin I 0.24 H Total Protein Albumin Triglycerides Cholesterol Total LDL Cholesterol HDL Cholesterol 01/27/19 01/27/19 01/27/19 01:15 06:05 06:05 WBC 6.9 RBC 4.50 Hgb 12.4 Hct 37.4 MCV 83.0 MCH 27.6 MCHC 33.3 RDW 14.4 Plt Count 194 MPV 8.2 Sodium 141 Potassium 3.9 Chloride 107 Carbon Dioxide 29 Anion Gap 5 L BUN 31.7 H Creatinine 1.1 Est GFR (CKD-EPI)AfAm 56.48 Est GFR (CKD-EPI)NonAf 48.73 POC Glucometer Random Glucose 116 H Hemoglobin A1c % Calcium 8.5 Phosphorus 3.4 Magnesium 2.4 Total Bilirubin 0.5 AST 9 L ALT 13 Alkaline Phosphatase 67 Troponin I 0.21 H Total Protein 6.0 L Albumin 3.3 L Triglycerides Cholesterol Total LDL Cholesterol HDL Cholesterol 01/27/19 01/27/19 01/27/19 06:05 06:05 06:19 WBC RBC Hgb Hct MCV MCH MCHC RDW Plt Count MPV Sodium Potassium Chloride Carbon Dioxide Anion Gap BUN Creatinine Est GFR (CKD-EPI)AfAm Est GFR (CKD-EPI)NonAf POC Glucometer 122 Random Glucose Hemoglobin A1c % 7.0 H Calcium Phosphorus Magnesium Total Bilirubin AST ALT Alkaline Phosphatase Troponin I Total Protein Albumin Triglycerides 145 Cholesterol 203 H Total LDL Cholesterol 136 H HDL Cholesterol 36 L 01/27/19 01/27/19 11:50 17:12 WBC RBC Hgb Hct MCV MCH MCHC RDW Plt Count MPV Sodium Potassium Chloride Carbon Dioxide Anion Gap BUN Creatinine Est GFR (CKD-EPI)AfAm Est GFR (CKD-EPI)NonAf POC Glucometer 201 246 Random Glucose Hemoglobin A1c % Calcium Phosphorus Magnesium Total Bilirubin AST ALT Alkaline Phosphatase Troponin I Total Protein Albumin Triglycerides Cholesterol Total LDL Cholesterol HDL Cholesterol Active Medications Generic Name Dose Route Start Last Admin Trade Name Freq PRN Reason Stop Dose Admin Acetaminophen 650 mg 01/26/19 15:27 Tylenol - PO Q6H PRN PAIN LEVEL 6-10 Aspirin 81 mg 01/27/19 10:00 01/27/19 09:00 Asa - PO 81 mg DAILY [facility] Administration Enoxaparin Sodium 40 mg 01/27/19 10:00 01/27/19 09:01 Lovenox - SQ 40 mg DAILY [facility] Administration Hydralazine HCl 10 mg 01/26/19 15:25 01/26/19 20:44 Apresoline Injection - IVPUSH 10 mg Q6H PRN Administration HYPERTENSION Hydrochlorothiazide 25 mg 01/27/19 10:00 01/27/19 09:00 Hctz - PO 25 mg DAILY [facility] Administration Insulin Aspart 1 vial 01/26/19 16:30 01/27/19 17:25 Novolog Vial Sliding Scale - SQ 4 unit ACHS [facility] Administration Protocol Losartan Potassium 50 mg 01/26/19 15:30 01/27/19 09:00 Cozaar - PO 50 mg DAILY [facility] Administration Metoprolol Succinate 100 mg 01/27/19 10:00 01/27/19 09:01 Toprol Xl - PO 100 mg DAILY [facility] Administration Rosuvastatin Calcium 20 mg 01/27/19 22:00 Crestor - PO HS [facility] Vital Signs Temp 98.7 F 01/27/19 14:00 Pulse 70 01/27/19 14:00 Resp 20 01/27/19 14:00 BP 135/77 01/27/19 14:00 Pulse Ox 97 01/27/19 07:54 Intake & Output 01/26/19 01/27/19 01/27/19 23:59 11:59 23:59 Intake Total 100 500 Balance 100 500 Weight 84.844 kg Intake: Oral 100 500 Other: Voiding Method Incontinent Diaper Diaper # Unmeasured Voids Void 1 2 3 Bowel Movement Yes # Bowel Movements 1 Height 5 ft 11 in Body Mass Index (BMI) 26.1 Weight Measurement Method Standing Scale ASSESSMENT/PLAN: Patient is a 78 y/o female with a history of asthma, HTN, and DM who presents s/ p fall w/a dizziness. #Mechanical Ground Level Fall w/a dizziness -- possibly assoc w/ HTN urgency > Head CT(01/26/19): no evidence of hemorrhage, edema, no infarct noted > XR hip(01/26/19): neg fx; tortuous aorta > XR Right shoulder(01/26/19): old humeral fx > XR knee(01/26/19): old fibular fx > echo(01/27/19): LVEF 65%, mild MR, mild TR > UA: neg LE, neg nitrite - fall risk precautions - PT eval -- rec Home PT w/ [employer] #HTN urgency -- now controlled - continue home metoprolol and HCTZ - Losartan 50 daily -- will go up to Losartan 100mg QD if SBP >160 - hydralazine 10 prn #tropinemia -- stable, possible demand ischemia > 0.24 -> 0.24 -> 0.21 - s/p ED: ASA 162mg - ASA 81mg daily - cardio consult > lipid panel: Cholesterol 203, HDL 36, LDL 136 > HbA1c 7.0 - started Crestor 20mg QD - further Cardiac w/u as outpt #DM - BGM ACHS - ISS #DVT ppx - Lovenox 40 sq daily #FEN - low sodium, diabetic diet DC plan: - lives alone - SNF vs home PT w/ [employer] Visit type - Emergency Visit Emergency Visit: No - New Patient This patient is new to me today: No - Critical Care Critical Care patient: No ATTENDING PHYSICIAN STATEMENT I saw and evaluated the patient. I reviewed the resident's note and discussed the case with the resident. I agree with the resident's findings and plan as documented. SUBJECTIVE: OBJECTIVE: ASSESSMENT AND PLAN:
[2019-01-27] MEDS ORDERED: ROSUVASTATIN CA 20 MG TABLET (FP) PO SCH (22:00)
[2019-01-28] MEDS: INSULIN SLIDING SCALE (NOVOLOG) 1 VIAL SQ SCH ×2 (06:06→12:29)
--- NOTE | 2019-01-28 09:38 | PN ---
Progress Note, Physician History of Present Illness: No further dizziness, near or true syncope. - Current Medication List Current Medications: Active Medications Acetaminophen (Tylenol -) 650 mg PO Q6H PRN PRN Reason: PAIN LEVEL 6-10 Aspirin (Asa -) 81 mg PO DAILY [facility] Last Admin: 01/27/19 09:00 Dose: 81 mg Enoxaparin Sodium (Lovenox -) 40 mg SQ DAILY [facility] Last Admin: 01/27/19 09:01 Dose: 40 mg Hydralazine HCl (Apresoline Injection -) 10 mg IVPUSH Q6H PRN PRN Reason: HYPERTENSION Last Admin: 01/26/19 20:44 Dose: 10 mg Hydrochlorothiazide (Hctz -) 25 mg PO DAILY [facility] Last Admin: 01/27/19 09:00 Dose: 25 mg Insulin Aspart (Novolog Vial Sliding Scale -) 1 vial SQ [facility]; Protocol Last Admin: 01/28/19 06:06 Dose: Not Given Losartan Potassium (Cozaar -) 50 mg PO DAILY [facility] Last Admin: 01/27/19 09:00 Dose: 50 mg Metoprolol Succinate (Toprol Xl -) 100 mg PO DAILY [facility] Last Admin: 01/27/19 09:01 Dose: 100 mg Rosuvastatin Calcium (Crestor -) 20 mg PO HS [facility] Last Admin: 01/27/19 21:19 Dose: 20 mg - Objective Vital Signs: Vital Signs Temperature 98.1 F 01/28/19 06:00 Pulse Rate 59 L 01/28/19 06:00 Respiratory Rate 20 01/28/19 06:00 Blood Pressure 153/79 01/28/19 06:00 O2 Sat by Pulse Oximetry (%) 96 01/27/19 20:51 Constitutional: Yes: No Distress, Calm Neck: Yes: Supple Cardiovascular: Yes: Regular Rate and Rhythm Respiratory: Yes: Regular, CTA Bilaterally Gastrointestinal: Yes: Normal Bowel Sounds, Soft Edema: No Labs: CBC, BMP 01/27/19 06:05 01/27/19 06:05 - ....Imaging EKG: Report Reviewed (Tele: SB, no pauses) Problem List - Problems (1) Demand ischemia Code(s): I24.8 - OTHER FORMS OF ACUTE ISCHEMIC HEART DISEASE (2) Hypertensive emergency Code(s): I16.1 - HYPERTENSIVE EMERGENCY (3) CAD (coronary artery disease) Code(s): I25.10 - ATHSCL HEART DISEASE OF [place] CORONARY ARTERY W/O ANG PCTRS Qualifiers: Coronary Disease-Associated Artery/Lesion type: [place] artery [place] vs. transplanted heart: [place] heart Associated angina: without angina Qualified Code(s): I25.10 - Atherosclerotic heart disease of [place] coronary artery without angina pectoris (4) Diabetes mellitus Code(s): E11.9 - TYPE 2 DIABETES MELLITUS WITHOUT COMPLICATIONS Qualifiers: Diabetes mellitus type: type 2 (5) H/O coronary artery bypass surgery Code(s): Z95.1 - PRESENCE OF AORTOCORONARY BYPASS GRAFT Assessment/Plan 01/27/2019 Echo: Normal LV and RV size and fxn LVEF 65%, mild MR, TR 1. Post mechanical fall with no visible injury, denies LOC 2. CAD s/p CABG, angina pectoris 3. HTN 4. DM 5. History of bronchial asthma 6. Demand ischemia PLAN: 1. Troponin downtrending 2. Continue Metoprolol ER 100 mg QD and Losartan 50 mg QD 3. ASA 81 qd, HCTZ 25 qd, Crestor 20 qhs 4. DVT prophylaxis 5. Further cardiac workup can be followed as outpatient
[2019-01-28] MEDS ORDERED: PT OWN MED DRAWER 7, Y5N ONE (10:08)
[2019-01-28] MEDS: HYDROCHLOROTHIAZIDE 25 MG TABLET (FP) PO SCH (10:12)
[2019-01-28] MEDS: ENOXAPARIN NA (PORCINE) 40 MG/0.4 ML DISP.SYRIN SQ SCH (10:12)
[2019-01-28] MEDS: LOSARTAN POTASSIUM 50 MG TABLET (FP) PO SCH (10:12)
[2019-01-28] MEDS: ASPIRIN 81 MG CHEWABLE TABLETS PO SCH (10:12)
--- NOTE | 2019-01-28 12:02 | PN ---
Teaching Attending Note Name of Resident: Korey Bryant ATTENDING PHYSICIAN STATEMENT I saw and evaluated the patient. I reviewed the resident's note and discussed the case with the resident. I agree with the resident's findings and plan as documented with exceptions below. SUBJECTIVE: patient seen and examined, doing well, no complaints. OBJECTIVE: Vital Signs Period Temp Pulse Resp BP Sys/Pruitt Pulse Ox Last 24 Hr 97.8 F-98.7 F 54-70 18-20 108-158/52-79 96 Intake & Output 01/25/19 01/26/19 01/27/19 01/28/19 23:59 23:59 23:59 23:59 Intake Total 100 1250 Balance 100 1250 Weight 187 lb 0.8 oz General: sitting in bed, no acute distress Neck; soft, supple Chest: CTAB, no rales or wheezing Abdomen:Soft, obese, NT Extremities: no edema Home Medications Medication Instructions Recorded Hydrochlorothiazide [Hctz -] 25 mg PO DAILY 12/05/18 Metoprolol Succinate 100 mg PO DAILY 12/05/18 Glimepiride 2 mg PO DAILY 01/26/19 Meloxicam 15 mg PO DAILY 01/26/19 Metformin HCl [Glucophage] 1,000 mg PO DAILY 01/26/19 Olopatadine HCl [Pazeo] 2.5 ml DAILY 01/26/19 Aspirin [ASA -] 81 mg PO DAILY 30 Days #30 tab.chew 01/28/19 Blood Pressure Kit Med,Large 1 each MC DAILY 30 Days #1 kit 01/28/19 [Blood Pressure Monitor] Losartan Potassium [Cozaar -] 50 mg PO DAILY 30 Days #30 tablet 01/28/19 Rosuvastatin [Crestor -] 20 mg PO HS 30 Days #30 tablet 01/28/19 Laboratory Results - last 24 hr 01/27/19 01/27/19 01/28/19 17:12 21:17 05:43 POC Glucometer 246 184 124 01/28/19 11:32 POC Glucometer 225 ASSESSMENT AND PLAN: 78 yof with PMhx of HTN, ?CAD s/p CABG 12 years ago, NIDDM, obesity, Thyroid nodule, peripheral neuropathy admitted with vertigo, hypertensive urgency and elevated troponin -Hypertensive urgency -Elevated troponin, demand from above, vs r/o ACS -Vertigo/dizziness, suspect from above, rather than vertiginous or neurological process -?CAD s/p CABG 12 years ago -NIDDM -Obesity -Thyroid nodule -Peripheral neuropathy Plan: Improved ASA/statin/metoprolol/HCTZ/losartan HOme BP monitoring advised. Resume home DM meds PT soni noted, patient wants to go home with services, discussed with social work Dc home with services with home BP monitoring Discussed with nursing
--- NOTE | 2019-01-28 12:37 | DS ---
Physical Exam: SUBJECTIVE: Patient seen and examined OBJECTIVE: Vital Signs Period Temp Pulse Resp BP Sys/Pruitt Pulse Ox Last 24 Hr 97.8 F-98.7 F 54-70 18-20 108-158/52-79 96 PHYSICAL EXAM GENERAL: The patient is awake, alert. NAD. HEAD: NC. No palpable scalp hematoma EYES: sclera anicteric, conjunctiva w/o pallor ENT: Ears normal, nares patent, moist mucous membranes. NECK: Trachea midline, full range of motion, supple. LUNGS: Breath sounds equal, clear to auscultation bilaterally, no wheezes, no crackles, no accessory muscle use. HEART: Regular rate and rhythm, S1, S2 without murmur, rub or gallop. ABDOMEN: Soft, nontender, nondistended, no guarding, no rebound. EXTREMITIES: 2+ pulses, warm, well-perfused BUE. Right lateral forearm with > 10cm pendulous mass w/o discrete areas of firmness/nodularity nor discrete boundaries NEUROLOGICAL: Normal speech, gait not observed. PSYCH: Normal mood, normal affect. SKIN: Warm, dry, normal turgor, no rashes or lesions noted LABS Laboratory Results - last 24 hr 01/27/19 01/27/19 01/28/19 17:12 21:17 05:43 POC Glucometer 246 184 124 01/28/19 11:32 POC Glucometer 225 HOSPITAL COURSE: 78 y/o female with a history of asthma, HTN, and DM who presents s/p GLF w/a dizziness. Thought to be 2/2 HTN urgency(247/81). BP improved with home metoprolol, HCTZ, losartan. CTH neg for hemorrhage. XR hip neg for fx. XR Right shoulder showing old humeral fx. XR right knee showing old fibular fx. Had echo( 01/27/19) showing LVEF 65%. Troponins elevated but stable( 0.24, 0.24, 0.21), given ASA 162mg in ED. Cardio consulted and started ASA 81mg, and Crestor 20mg. 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 Date of Admission:01/26/19 Date of Discharge: 01/28/19 Minutes to complete discharge: 20 Discharge Summary Problems reviewed: Yes Reason For Visit: SYNCOPE,ELEVATED TROPONIN,HYPERTENSION Current Active Problems Demand ischemia (Acute) Fall as cause of accidental injury in home as place of occurrence (Acute) Hypertensive emergency (Acute) Condition: Stable - Instructions Diet, Activity, Other Instructions: You were evaluated in the hospital after falling at home. Your blood pressure was found to be high but reduced after receiving medications. Imaging did not show any broken bones of the head, knee, hip. Bloodwork showed high cholesterol. A rotary envelope machine operator recommended additional imaging of the heart which showed no major abnormalities. Imaging of the neck showed some narrowing of blood vessels in the neck. Please follow-up with the physicians below: - Passenger Service Manager(Dr Dave Mohr): to discuss future cardiac studies as needed - PCP: for continued management of your diabetes, blood pressure medications, blood pressure re-check - Vascular Surgeon(Dr Betancur): to discuss continued management of your carotid stenosis Medications: - NEW medications: --Rosuvastatin[CRESTOR] 20mg once at night --Losatan Potassium[COZAAR] 50mg once daily --Aspirin 81mg once daily - continue with other home medications Additional instructions: - please keep a log of your blood pressure medications, to be taken everyday after sitting upright for 10mins during a restful period of the day. Log to be reviewed with your PCP - reduce your intake of high-sugar, high-fat, high-sodium foods - Crestor can cause myalgias (muscle pains), cramps and abnormal liver test; Please notify your primary care doctor if any of these occur. Please seek immediate medical evaluation or go to the Emergency Department if your experience: - chest pain, palpitations, shortness of breath - confusion, dizziness, blurry vision, double vision, imbalance Referrals: Felipe Pollard MD [Primary Care Provider] - Dave Mohr MD [Staff Physician] - Ricci Betancur DO [Staff Physician] - Disposition: VNS/HOME HEALTH CARE - Home Medications Comprehensive Discharge Medication List: Ambulatory Orders Hydrochlorothiazide [Hctz -] 25 mg PO DAILY 12/05/18 Metoprolol Succinate 100 mg PO DAILY 12/05/18 Glimepiride 2 mg PO DAILY 01/26/19 Meloxicam 15 mg PO DAILY 01/26/19 Metformin HCl [Glucophage] 1,000 mg PO DAILY 01/26/19 Olopatadine HCl [Pazeo] 2.5 ml DAILY 01/26/19 Aspirin [ASA -] 81 mg PO DAILY 30 Days #30 tab.chew 01/28/19 Blood Pressure Kit Med,Large [Blood Pressure Monitor] 1 each MC DAILY 30 Days # 1 kit 01/28/19 Losartan Potassium [Cozaar -] 50 mg PO DAILY 30 Days #30 tablet 01/28/19 Rosuvastatin [Crestor -] 20 mg PO HS 30 Days #30 tablet 01/28/19 This patient is new to me today: No Emergency Visit: No Critical Care patient: No - Discharge Referral Referred to [facility] Med P.C.: No ATTENDING PHYSICIAN STATEMENT I saw and evaluated the patient. I reviewed the resident's note and discussed the case with the resident. I agree with the resident's findings and plan as documented. SUBJECTIVE: OBJECTIVE: ASSESSMENT AND PLAN:
[2019-01-28 14:25] VITALS: BP 146/70; PULSE 63; TEMP 98.5
== END 2019-01-28 16:32 | disposition home health service (06) | DRG 305 ==
LOC: JER 10:37 → JERBED 14:16 → J4S 21:20
PROVIDERS: ADMIT Hospitalist; ATTEND Hospitalist
DX: I16.0 Hypertensive urgency (principal); I24.8 Other forms of acute ischemic heart disease; I16.1 Hypertensive emergency; E11.9 Type 2 diabetes mellitus without complications; R55 Syncope and collapse; Z95.1 Presence of aortocoronary bypass graft; I25.119 Atherosclerotic heart disease of native coronary artery with unspecified angina pectoris; E04.1 Nontoxic single thyroid nodule; G62.9 Polyneuropathy, unspecified; E66.9 Obesity, unspecified; Z68.26 Body mass index [BMI] 26.0-26.9, adult; J45.909 Unspecified asthma, uncomplicated; R42 Dizziness and giddiness; I77.1 Stricture of artery
CPT/HCPCS: 36415; 70450-TC; 71045-TC-FY; 73030-TC-RT-FY; 73502-TC-RT-FY; 73560-TC-RT-FY; 80053; 80061; 81003; 82550; 82962; 83036; 83721; 83735; 83880; 84100; 84484; 85025; 85027; 85730; 87086; 93005; 93010; 93306-TC; 93880-TC; 97116-GP; 97161-GP; 99285-25; G0008; Q2036

== ENCOUNTER 2019-03-21 11:24 | Inpatient (IN) | payer OTHER, MEDICARE ==
--- NOTE | 2019-03-21 12:21 | PDOC ---
History of Present Illness - General Stated Complaint: DIZZINESS Time Seen by Provider: 03/21/19 12:01 - History of Present Illness Initial Comments: Kristina Noble is a 78yo woman with a PMH of CAD s/p CABG (11y ago at [facility]), HTN, DM and bronchial asthma who presents with a fall today secondary to dizziness. She describes this as feeling "like she is going to faint" because "everything is moving around." She states that she has had the dizziness on and off for several months, and she was admitted to the hospital for workup, which was negative. Today, she had been feeling well in the morning, went downstairs to get her mail, became dizzy and fell against the wall. She did hit the left side of her head on the wall but denies any LOC. She did not attempt to get up, and a neighbor called EMS. Ms Noble reports that she was feeling better by the time EMS arrived. The pt denies any association between the dizziness and change in position, movement, activity, or turning her head. She says that she has "seen a lot of doctors" and everyone told her that "everything is fine." In addition to the dizziness, she additionally reports L leg pain that has been present for the pat 1-2 months. She does not think the pain was worsened due to her fall today. She is unable to pinpoint exactly where her leg hurts, though it has not prevented her from walking or using her leg recently. She denies any other symptoms including chest pain, SOB, nausea/vomiting, fever/chills, headache, change in vision or hearing, focal weakness or numbness. Past History - Past Medical History Allergies/Adverse Reactions: Allergies Allergy/AdvReac Type Severity Reaction Status Date / Time Penicillins AdvReac Verified 03/21/19 13:42 Home Medications: Ambulatory Orders Hydrochlorothiazide [Hctz -] 25 mg PO DAILY 12/05/18 Metoprolol Succinate 100 mg PO DAILY 12/05/18 Glimepiride 2 mg PO DAILY 01/26/19 Meloxicam 15 mg PO DAILY 01/26/19 Metformin HCl [Glucophage] 1,000 mg PO DAILY 01/26/19 Olopatadine HCl [Pazeo] 2.5 ml DAILY 01/26/19 Aspirin [ASA -] 81 mg PO DAILY 30 Days #30 tab.chew 01/28/19 Blood Pressure Kit Yoko Juarez [Blood Pressure Monitor] 1 each MC DAILY 30 Days # 1 kit 01/28/19 Losartan Potassium [Cozaar -] 50 mg PO DAILY 30 Days #30 tablet 01/28/19 Rosuvastatin [Crestor -] 20 mg PO HS 30 Days #30 tablet 01/28/19 Asthma: Yes COPD: No Diabetes: Yes HTN: Yes - Surgical History Cardiac Surgery: Yes (heart surgery) - Psycho Social/Smoking Cessation Hx Smoking History: Former smoker Have you smoked in the past 12 months: No Information on smoking cessation initiated: No Hx Alcohol Use: No Drug/Substance Use Hx: No Review of Systems - Review of Systems Comments:: General: No fevers, no chills, no weight or appetite change, no malaise HEENT: No changes in vision, no changes in hearing, no congestion, no sore throat CV: No chest pain, no palpitations, no LE edema Pulm: No SOB, no cough, no wheezing GI: No nausea or vomiting, no change in bowel habits, no melena : No frequency, no urgency, no dysuria Musc: No back pain, no joint swelling, no recent injury. +LLE pain, shoulder pain Skin: No rash, no lesions, no erythema Endo: No excessive thirst, no heat/cold intolerance Heme: No unusual bruising or bleeding, no swollen glands Neuro: No syncope, no numbness/tingling, no focal weakness. +Dizzy Vasc: No claudication Psych: No recent change in mood, no SI or HI *Physical Exam - Vital Signs Last Vital Signs Temp Pulse Resp BP Pulse Ox 97.6 F 53 L 19 187/83 H 99 03/21/19 11:50 03/21/19 11:50 03/21/19 11:50 03/21/19 11:50 03/21/19 11:50 - Physical Exam General: Comfortable, no acute distress HEENT: PERRL, EOMI, MMM, voice normal, normal neck ROM, no LAD Cards: RRR, no murmur appreciated Pulm: Comfortable on room air, clear to auscultation bilaterally Abd: Soft, nontender, nondistended Ext: Atraumatic. No pitting LE edema. ROM intact. WWP Skin: Normal color, no rashes or lesions Neuro: A&Ox3, CN grossly intact, normal speech, motor/sensory grossly intact and symmetric Psych: Mood appropriate to situation ED Treatment Course - LABORATORY CBC & Chemistry Diagram: 03/21/19 11:30 03/21/19 11:30 - ADDITIONAL ORDERS Additional order review: Laboratory Results 03/21/19 11:47 POC Glucometer 136 03/21/19 11:47 POC Glucometer 136 Medical Decision Making - Medical Decision Making 03/21/19 12:20 Kristina Noble is a 78yo woman with a PMH of CAD s/p CABG ([address]y ago [address] [facility]), HTN, DM and bronchial asthma who presents with a fall today secondary to dizziness, present intermittently for several months. She endorses hitting her head but denies LOC. Ms Noble has had similar episodes in the past and was admitted in January for evaluation of the dizziness. - Unclear whether vertigo or lightheadedness. Currently asymtpomatic - Syncope workup including CBC, CMP, UA, UCx, EKG, CXR - CT head, CT c-spine given fall - Markedly HTN with SBP around 200. Urgency v emergency. Bradycardic with HR in the 50's, hydralazine 10mg IV ordered - Acetaminophen for leg pain. 03/21/19 13:05 - BP now 169/63; will recheck and redose hydralazine if needed - EKG w/ snius bradycardia, HR 54, left axis, normal intervals, no ST elevation or t-wave changes 03/21/19 14:25 - Labs reviewed. Notable for trop 0.19. Similar value around 0.2 recorded in the past - UA negative - Pt currently at CT, will reassess BP when she returns 03/21/19 14:30 03/21/19 15:34 - CT head, c-spine negative for acute injury - Repeat trop ordered - Will send microblog for admission for syncope, elevated trop 03/21/19 16:34 - Sign out given to Dr Radford. Will admit to telemetry for additional workup Discussed with Dr Francisco Theodore PGY2 Discharge - Discharge Information Problems reviewed: Yes Clinical Impression/Diagnosis: Elevated troponin, Near syncope Hypertension Qualifiers: Hypertension type: unspecified Qualified Code(s): I10 - Essential (primary) hypertension Condition: Stable - Admission Yes - Follow up/Referral Referrals: Felipe Pollard MD [Primary Care Provider] - - Patient Discharge Instructions - Post Discharge Activity
[2019-03-21] MEDS ORDERED: hydrALAZINE HCL 20 MG/ML VIAL IVPUSH ONE (12:22)
[2019-03-21] MEDS ORDERED: ACETAMINOPHEN 325 MG TABLET (FP) PO ONE ×2 (12:22→20:03)
[2019-03-21] MEDS ORDERED: ACETAMINOPHEN 325 MG TABLET (FP) ONE ×2 (12:26→20:12)
[2019-03-21] MEDS ORDERED: hydrALAZINE HCL 20 MG/ML VIAL ONE (12:28)
[2019-03-21 13:26] LABS: BASO % 0.7 % (0-2.0); EOS % 0.8 % (0-4.5); HEMATOCRIT 37.9 % (32.4-45.2); HEMOGLOBIN 12.3 GM/dL (10.7-15.3); LYMPH % 16.8 % (8-40); MCH 27.3 pg (25.7-33.7); MCHC 32.4 g/dl (32.0-36.0); MEAN PLT VOLUME 8.5 fl (7.5-11.1); MONO % 8.9 % (3.8-10.2); NEUT % 72.8 % (42.8-82.8); PLATELET COUNT 194 K/MM3 (134-434); RBC 4.51 M/mm3 (3.60-5.2); RDW 14.8 % (11.6-15.6)
[2019-03-21 13:41] LABS: ALBUMIN 3.6 g/dl (3.4-5.0); BILIRUBIN,TOTAL 0.3 mg/dL (0.2-1); BLOOD UREA NITROGEN 35.1 mg/dL (7-18); POTASSIUM 4.3 mmol/L (3.5-5.1); TOT PROT 6.8 g/dl (6.4-8.2)
[2019-03-21 13:46] LABS: URINE APPEARANCE CLEAR; URINE BILIRUBIN NEGATIVE (NEGATIVE); URINE COLOR YELLOW; URINE GLUCOSE (UA) NEGATIVE (NEGATIVE); URINE KETONE NEGATIVE (NEGATIVE); URINE LEUK ESTERASE NEGATIVE (NEGATIVE); URINE NITRITE NEGATIVE (NEGATIVE); URINE PROTEIN NEGATIVE (NEGATIVE); URINE UROBILINOGEN 0.2 mg/dL (0.2-1.0)
--- NOTE | 2019-03-21 17:03 | PN ---
Progress Note, Physician Chief Complaint: Initial Comments: Kristina Noble is a 78yo woman with a PMH of CAD s/p CABG (11y ago [address] [facility]), HTN, DM and bronchial asthma who presents with a fall today secondary to dizziness. She describes this as feeling "like she is going to faint" because "everything is moving around." She states that she has had the dizziness on and off for several months, and she was admitted to the hospital for workup, which was negative. Today, she had been feeling well in the morning, went downstairs to get her mail, became dizzy and fell against the wall. She did hit the left side of her head on the wall but denies any LOC. She did not attempt to get up, and a neighbor called EMS. Ms Noble reports that she was feeling better by the time EMS arrived. The pt denies any association between the dizziness and change in position, movement, activity, or turning her head. She says that she has "seen a lot of doctors" and everyone told her that "everything is fine." In addition to the dizziness, she additionally reports L leg pain that has been present for the pat 1-2 months. She does not think the pain was worsened due to her fall today. She is unable to pinpoint exactly where her leg hurts, though it has not prevented her from walking or using her leg recently. She denies any other symptoms including chest pain, SOB, nausea/vomiting, fever/chills, headache, change in vision or hearing, focal weakness or numbness. - Objective Vital Signs: Vital Signs Temperature 97.6 F 03/21/19 11:50 Pulse Rate 71 03/21/19 13:32 Respiratory Rate 23 H 03/21/19 13:32 Blood Pressure 135/105 H 03/21/19 13:32 O2 Sat by Pulse Oximetry (%) 100 03/21/19 13:32 Labs: CBC, BMP 03/21/19 11:30 03/21/19 11:30
[2019-03-21] MEDS ORDERED: HYDROCHLOROTHIAZIDE 25 MG TABLET (FP) PO ONE (17:17)
--- NOTE | 2019-03-21 17:21 | HP ---
Admitting History and Physical - Admission Chief Complaint: dissiness History of Present Illness: a 78yo woman with a PMH of CAD s/p CABG (11y ago at [facility]), HTN, DM and bronchial asthma who presents with a fall today secondary to dizziness. She describes this as feeling "like she is going to faint" because "everything is moving around." She states that she has had the dizziness on and off for several months , and she was admitted to the hospital for workup, which was negative. Today, she had been feeling well in the morning, went downstairs to get her mail, became dizzy and fell against the wall. She did hit the left side of her head on the wall but denies any LOC. She did not attempt to get up, and a neighbor called EMS. Ms Noble reports that she was feeling better by the time EMS arrived.dissiness is unrelated to the change of position, she additionally reports L leg pain that has been present for the pat 1-2 months. She does not think the pain was worsened due to her fall today. pain is in her knee , though it has not prevented her from walking or using her leg recently. She denies any other symptoms including chest pain, SOB, nausea/ vomiting, fever/chills, headache, change in vision or hearing, focal weakness or numbness. - Past Medical History Cardiovascular: Yes: CAD, HTN Pulmonary: Yes: Asthma Endocrine: Yes: Diabetes Mellitus - Past Surgical History Past Surgical History: Yes: CABG - Smoking History Smoking history: Former smoker Have you smoked in the past 12 months: No - Alcohol/Substance Use Hx Alcohol Use: No Home Medications - Allergies Allergies/Adverse Reactions: Allergies Allergy/AdvReac Type Severity Reaction Status Date / Time Penicillins AdvReac Verified 03/21/19 13:42 - Home Medications Home Medications: Ambulatory Orders Hydrochlorothiazide [Hctz -] 25 mg PO DAILY 12/05/18 Metoprolol Succinate 100 mg PO DAILY 12/05/18 Glimepiride 2 mg PO DAILY 01/26/19 Meloxicam 15 mg PO DAILY 01/26/19 Metformin HCl [Glucophage] 1,000 mg PO DAILY 01/26/19 Olopatadine HCl [Pazeo] 2.5 ml DAILY 01/26/19 Aspirin [ASA -] 81 mg PO DAILY 30 Days #30 tab.chew 01/28/19 Blood Pressure Kit MedLarge [Blood Pressure Monitor] 1 each MC DAILY 30 Days # 1 kit 01/28/19 Losartan Potassium [Cozaar -] 50 mg PO DAILY 30 Days #30 tablet 01/28/19 Rosuvastatin [Crestor -] 20 mg PO HS 30 Days #30 tablet 01/28/19 Family Medical History Family Hx Cardiac Disorders: Mother ( of cardiac dis at the age of 70) Review of Systems - Review of Systems Constitutional: reports: Weakness (generalized weakness) Eyes: reports: No Symptoms HENT: reports: No Symptoms Neck: reports: No Symptoms Cardiovascular: reports: No Symptoms Respiratory: reports: No Symptoms Gastrointestinal: reports: No Symptoms Genitourinary: reports: No Symptoms Breasts: reports: No Symptoms Reported Integumentary: reports: No Symptoms Neurological: reports: No Symptoms Endocrine: reports: No Symptoms Hematology/Lymphatic: reports: No Symptoms Psychiatric: reports: No Symptoms Physical Examination Vital Signs: Vital Signs Temperature 97.6 F 03/21/19 11:50 Pulse Rate 57 L 03/21/19 17:04 Respiratory Rate 22 H 03/21/19 17:04 Blood Pressure 178/73 H 03/21/19 17:04 O2 Sat by Pulse Oximetry (%) 99 03/21/19 17:04 Constitutional: Yes: No Distress, Obese Eyes: Yes: WNL, EOM Intact HENT: Yes: WNL, Atraumatic, Normocephalic Neck: Yes: WNL Cardiovascular: Yes: Regular Rate and Rhythm Respiratory: Yes: Regular, CTA Bilaterally Gastrointestinal: Yes: Normal Bowel Sounds, Soft Extremities: Yes: Other (chroinic venous stasis changes) Edema: Yes Edema: LLE: 1+, RLE: 1+ Peripheral Pulses: Left Doralis Pedis: 1+, Right Dorsalis Pedis: 1+ Neurological: Yes: WNL, Oriented ...Motor Strength: WNL Psychiatric: Yes: WNL Labs: CBC, BMP 03/21/19 11:30 03/21/19 11:30 Problem List - Problems (1) Hypertension Code(s): I10 - ESSENTIAL (PRIMARY) HYPERTENSION Qualifiers: Hypertension type: unspecified Qualified Code(s): I10 - Essential (primary ) hypertension (2) Near syncope Code(s): R55 - SYNCOPE AND COLLAPSE (3) Fall as cause of accidental injury in home as place of occurrence Code(s): W19.XXXA - UNSPECIFIED FALL, INITIAL ENCOUNTER; Y92.009 - UNSP PLACE IN UNSP NON-INSTITUT (PRIVATE) RESIDENCE PLACE (4) CAD (coronary artery disease) Code(s): I25.10 - ATHSCL HEART DISEASE OF [place] CORONARY ARTERY W/O ANG PCTRS Qualifiers: Coronary Disease-Associated Artery/Lesion type: [place] artery [place] vs. transplanted heart: [place] heart Associated angina: without angina Qualified Code(s): I25.10 - Atherosclerotic heart disease of [place] coronary artery without angina pectoris Assessment/Plan assessment and plan 03/21/19 12:20 Kristina Noble is a 78yo woman with a PMH of CAD s/p CABG (11y ago at [facility]), HTN, DM and bronchial asthma who presents with a fall today secondary to dizziness, had previous admission with similar complaints, hit her head to floor without any LOC, she has had similar episodes in the past and was admitted in January for evaluation of the dizziness. -PRE SYNCOPE. - Syncope workup oredered - CT head, CT c-spine given fall, negative, - markedly high BP, receieved hydralazine, and bp dec to 169/63 - EKG w/ snius bradycardia, HR 54, left axis, normal intervals, no ST elevation or t-wave changes' spoke with dr wilson, symptoms ongoing for a while, will get PT evaluation, dc planning for safe dc, h/o of CAD s/p cabg, - Labs reviewed. Notable for trop 0.19. Similar value around 0.2 recorded in the past - UA negative -was seen by dr PARIS< left message with service, h/o HTN will resume oral meds, and monitor the bp h/o dm, was on glucopage, and glimepride, , last hba1c was 7.0 bun slightly high, start RISS, after checking tomorrows renal functions resume oral meds, high chol , continue crestor, dvt prophylaxis heparin sq Visit type - Emergency Visit Emergency Visit: Yes Care time: The patient presented to the Emergency Department on the above date and was hospitalized for further evaluation of their emergent condition. - New Patient This patient is new to me today: Yes Date on this admission: 03/21/19 - Critical Care Critical Care patient: No
[2019-03-21] MEDS ORDERED: HYDROCHLOROTHIAZIDE 25 MG TABLET (FP) ONE (17:54)
--- NOTE | 2019-03-21 19:03 | PDOC ---
Attending Attestation - Resident Resident Name: Ariella Theodore - HPI HPI: 03/21/19 18:56 pt presents to the ED complaining of extreme lightheadness and fall today. Denies chest pain or shortness of breath. Denies nausea or vomiting. Patient has had multiple episodes of light headness which have led to multiple falls. Patient was admitted for similar symptoms this year, but work up did not include neurology evaluation or MRI. - Physicial Exam PE: 03/21/19 18:58 Agree with resident exam. PAtient is alert and oriented and in no acute distress. Neuro: alert and oriented x3, CN grossly intact, speech fluent and clear. - Medical Decision Making 03/21/19 18:59 Pt presents to the ED complaining of lightheadness and fall. CT head and C spine checked to rule out intracranial or cervical spinal injury and are negative. PAtient was extremely hypertensive on arrival to the ED, which resolved with hydralazine. Will admit to medicine for presyncope work up.
--- NOTE | 2019-03-21 21:38 | CONSULT ---
Consult - text type - Consultation Consultation Note: NEUROLOGY CONSULTATION is greatly appreciated: Events reviewed. Patient examined. This 78 yo RH woman lives alone. 3 adult children, the closest of whom lives in [place]. PMH sig for HTN, DM, HLD, arthritis, and ASHD. S/P CABG 11 yrs ago and has not driven since that time. Maintained on: Losartan, Metoprolol, Crestor, Insulins and ASA. Followed by Dr. Pollard. Chronic difficulties with balance. Pt requires cane and walker at home. Must balance on tabletop to cook. Has shower chair but still afraid to shower without help. Last had home health aide about 2 weeks ago after discharge from [facility] after admission for fall. "Dizziness" when walking is getting worse. Today had "spinning" and was "anxious." Fell without LOC or head trauma. CT of brain (reviewed): Mild atrophy and scattered subcortical microvascular changes. No change from 01/26/19- also for fall. BP in OY=682/73 SANTIAGO: s/p sternotomy. IV/ JESUS. No carotid bruits. Deforming arthropathy of knes and hands. Atrophic changes for shins/calves. No Head trauma NEURO: Awake, alert. Ox3. MS/speech: Normal CN II-XII: Normal with a few beats of conjugate, horizontal nystagmus on right gaze. No facial. Gag OK Motor: No drift. Normal strength. Areflexic in legs. Min cogwheel rigidity. Sl decreased GUILLAUME's. Toes downgoing Coord: No FTN Dystaxia Sensory: Sl decreased vibration over toes. Gait: Deferred IMP: Non-focal exam. Dizziness is probably multifactorial but predominately represents chronic gait ataxia Other factors include hypertensive encephalopathy, diabetic neuropathy, possible labyrinthine dysfunction and early extrapyramidal features Suggest: MRI of brain for extent of microvasculopathy Check B12, TSH, A1C Control systolic HTN. Cardiology consult. Echo in evaluation of valvulopathy PM&R eval and PT as directed for gait training with walker. 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 Thank you very much, Spencer James MD
[2019-03-21] MEDS: HEPARIN NA (PORCINE) 5,000 UNITS/ML 1ML VIAL SQ SCH (22:30)
[2019-03-21] MEDS: INSULIN SLIDING SCALE (NOVOLOG) 1 VIAL SQ SCH (22:30)
[2019-03-21] MEDS ORDERED: HEPARIN NA (PORCINE) 5,000 UNITS/ML 1ML VIAL ONE (22:40)
[2019-03-21] MEDS ORDERED: INSULIN (NOVOLOG) ASPART 100 UNITS/ML 10ML VIAL ONE (22:40)
--- NOTE | 2019-03-21 23:08 | EKG ---
Test Reason : Blood Pressure : / mmHG Vent. Rate : 054 BPM Atrial Rate : 054 BPM P-R Int : 178 ms QRS Dur : 090 ms QT Int : 440 ms P-R-T Axes : 045 -41 051 degrees QTc Int : 417 ms SINUS BRADYCARDIA LEFT AXIS DEVIATION MINIMAL VOLTAGE CRITERIA FOR LVH, MAY BE NORMAL VARIANT ABNORMAL ECG WHEN COMPARED WITH ECG OF 26-JAN-2019 17:55, T WAVE VARIATION Confirmed by RAINA NORTON, FRANSICO ([id number]) on 03/21/2019 11:08:10 PM Referred By: Confirmed By:FRANSICO PARIS MD
[2019-03-22] MEDS: ROSUVASTATIN CA 20 MG TABLET (FP) PO SCH ×2 (00:11→22:31)
[2019-03-22 01:52] VITALS: BMI 36.1
[2019-03-22] MEDS: INSULIN SLIDING SCALE (NOVOLOG) 1 VIAL SQ SCH ×4 (06:16→22:30)
[2019-03-22 06:59] LABS: BASO % 0.7 % (0-2.0); EOS % 0.8 % (0-4.5); HEMATOCRIT 34.9 % (32.4-45.2); HEMOGLOBIN 11.6 GM/dL (10.7-15.3); LYMPH % 23.6 % (8-40); MCH 27.5 pg (25.7-33.7); MCHC 33.2 g/dl (32.0-36.0); MEAN CELL VOLUME 82.9 fl (80-96); MEAN PLT VOLUME 8.1 fl (7.5-11.1); MONO % 10.6 % (3.8-10.2); NEUT % 64.3 % (42.8-82.8); PLATELET COUNT 175 K/MM3 (134-434); RBC 4.21 M/mm3 (3.60-5.2); RDW 14.5 % (11.6-15.6); WHITE BLOOD COUNT 5.9 K/mm3 (4.0-10.0)
[2019-03-22 07:26] LABS: ALBUMIN 3.3 g/dl (3.4-5.0); BILIRUBIN,TOTAL 0.3 mg/dL (0.2-1); BLOOD UREA NITROGEN 29.3 mg/dL (7-18); CALCIUM 8.5 mg/dL (8.5-10.1); MAGNESIUM 2.4 mg/dL (1.8-2.4); PHOSPHOROUS 3.9 mg/dL (2.5-4.9); POTASSIUM 3.8 mmol/L (3.5-5.1); TOT PROT 5.8 g/dl (6.4-8.2)
--- NOTE | 2019-03-22 08:42 | CON.CARD ---
Consult Consult Specialty:: Cardiology Referred by:: Hospitalist Reason for Consultation:: Cardiac evaluation - History of Present Illness Chief Complaint: Post fall History of Present Illness: Patient is a 78 year old female with underlying history of CAD s/p CABG at [facility], HTN, DM and bronchial asthma who presented after a fall due to dizziness. She states that her head was spinning and felt like fainting. She states that she had intermittent dizziness over the past several months. She was admitted in January with similar episode and at that time she fell hitting her head on the floor. This time she did hit the left side of the head on the wall but she denies LOC. She denies chest pain, SOB or palpitations. She denies paroxysmal nocturnal dypsnea or orthopnea. She denies fever or chills. She denies nausea, vomiting, diarrhea or abdominal pain. She denies headache at this time. - History Source History Provided By: Patient, Medical Record Limitations to Obtaining History: Clinical Condition - Past Medical History Cardio/Vascular: Yes: CAD, HTN Pulmonary: Yes: Asthma Endocrine: Yes: Diabetes Mellitus - Past Surgical History Past Surgical History: Yes: CABG - Alcohol/Substance Use Hx Alcohol Use: No - Smoking History Smoking history: Never smoked Have you smoked in the past 12 months: No Home Medications - Allergies Allergies/Adverse Reactions: Allergies Allergy/AdvReac Type Severity Reaction Status Date / Time Penicillins AdvReac Verified 03/21/19 13:42 - Home Medications Home Medications: Ambulatory Orders Hydrochlorothiazide [Hctz -] 25 mg PO DAILY 12/05/18 Metoprolol Succinate 100 mg PO DAILY 12/05/18 Glimepiride 2 mg PO DAILY 01/26/19 Meloxicam 15 mg PO DAILY 01/26/19 Metformin HCl [Glucophage] 1,000 mg PO DAILY 01/26/19 Olopatadine HCl [Pazeo] 2.5 ml DAILY 01/26/19 Aspirin [ASA -] 81 mg PO DAILY 30 Days #30 tab.chew 01/28/19 Blood Pressure Kit MedLarge [Blood Pressure Monitor] 1 each MC DAILY 30 Days # 1 kit 01/28/19 Losartan Potassium [Cozaar -] 50 mg PO DAILY 30 Days #30 tablet 01/28/19 Rosuvastatin [Crestor -] 20 mg PO HS 30 Days #30 tablet 01/28/19 Review of Systems - Review of Systems Constitutional: denies: Chills, Fever Cardiovascular: denies: Chest Pain, Palpitations, Shortness of Breath Respiratory: denies: Cough, Hemoptysis, Orthopnea, PND, SOB, SOB on Exertion, Wheezing Gastrointestinal: denies: Abdominal Pain, Constipation, Diarrhea, Melena, Nausea , Rectal Bleeding, Vomiting Musculoskeletal: denies: Back Pain, Joint Pain Neurological: reports: Dizziness. denies: Headache, Seizure, Syncope Vital Signs: Vital Signs Temperature 98.1 F 03/22/19 08:25 Pulse Rate 58 L 03/22/19 08:25 Respiratory Rate 18 03/22/19 08:25 Blood Pressure 174/79 H 03/22/19 08:25 O2 Sat by Pulse Oximetry (%) 97 03/22/19 08:23 Eyes: Yes: PERRL HENT: Yes: Atraumatic Neck: Yes: Supple Respiratory: Yes: CTA Bilaterally Gastrointestinal: Yes: Normal Bowel Sounds, Soft. No: Tenderness Cardiovascular: Yes: Regular Rate and Rhythm JVD: No PMI: Non-Displaced Heart Sounds: Yes: S1, S2 Murmur: Yes: Systolic Murmur, Grade 1 Edema: No - Other Data Labs, Other Data: CBC, BMP 03/22/19 06:16 03/22/19 06:16 Troponin, BNP 03/21/19 03/21/19 03/22/19 11:30 16:00 06:16 Troponin I 0.19 H 0.20 H 0.19 H Laboratory Results - last 24 hr 03/22/19 03/22/19 03/22/19 06:14 06:16 06:16 WBC 5.9 RBC 4.21 Hgb 11.6 Hct 34.9 MCV 82.9 MCH 27.5 MCHC 33.2 RDW 14.5 Plt Count 175 MPV 8.1 Absolute Neuts (auto) 3.8 Neutrophils % 64.3 Lymphocytes % 23.6 D Monocytes % 10.6 H Eosinophils % 0.8 Basophils % 0.7 Nucleated RBC % 0 Sodium 142 Potassium 3.8 Chloride 107 Carbon Dioxide 28 Anion Gap 7 L BUN 29.3 H Creatinine 1.0 Est GFR (CKD-EPI)AfAm 63.38 Est GFR (CKD-EPI)NonAf 54.68 POC Glucometer 136 Random Glucose 129 H Hemoglobin A1c % Calcium 8.5 Phosphorus 3.9 Magnesium 2.4 Total Bilirubin 0.3 AST 9 L ALT 14 Alkaline Phosphatase 61 Creatine Kinase 35 Troponin I 0.19 H Total Protein 5.8 L Albumin 3.3 L Triglycerides 140 Cholesterol 161 Total LDL Cholesterol 100 HDL Cholesterol 39 L 03/22/19 03/22/19 03/22/19 06:16 11:22 16:38 WBC RBC Hgb Hct MCV MCH MCHC RDW Plt Count MPV Absolute Neuts (auto) Neutrophils % Lymphocytes % Monocytes % Eosinophils % Basophils % Nucleated RBC % Sodium Potassium Chloride Carbon Dioxide Anion Gap BUN Creatinine Est GFR (CKD-EPI)AfAm Est GFR (CKD-EPI)NonAf POC Glucometer 199 141 Random Glucose Hemoglobin A1c % 6.8 H Calcium Phosphorus Magnesium Total Bilirubin AST ALT Alkaline Phosphatase Creatine Kinase Troponin I Total Protein Albumin Triglycerides Cholesterol Total LDL Cholesterol HDL Cholesterol Sinus bradycardia Echo: Report Reviewed (Normal LV systolic function, mild MR and TR) Imaging - Results Chest X-ray: Report Reviewed (Unremarkable) Cat Scan: Report Reviewed (Head CT unremarkable) EKG: Report Reviewed Problem List - Problems (1) Elevated troponin Code(s): R79.89 - OTHER SPECIFIED ABNORMAL FINDINGS OF BLOOD CHEMISTRY (2) Hypertension Code(s): I10 - ESSENTIAL (PRIMARY) HYPERTENSION Qualifiers: Hypertension type: unspecified Qualified Code(s): I10 - Essential (primary ) hypertension (3) Demand ischemia Code(s): I24.8 - OTHER FORMS OF ACUTE ISCHEMIC HEART DISEASE (4) Fall as cause of accidental injury in home as place of occurrence Code(s): W19.XXXA - UNSPECIFIED FALL, INITIAL ENCOUNTER; Y92.009 - UNSP PLACE IN UNSP [facility]PR[facility] RESIDENCE PL[facility] (5) CAD (coronary artery disease) Code(s): I25.10 - ATHSCL HEART DISEASE OF [place] CORONARY ARTERY W/O ANG PCTRS Qualifiers: Coronary Disease-Associated Artery/Lesion type: [place] artery [place] vs. transplanted heart: [place] heart Associated angina: without angina Qualified Code(s): I25.10 - Atherosclerotic heart disease of [place] coronary artery without angina pectoris (6) Diabetes mellitus Code(s): E11.9 - TYPE 2 DIABETES MELLITUS WITHOUT COMPLICATIONS Qualifiers: Diabetes mellitus type: type 2 (7) H/O coronary artery bypass surgery Code(s): Z95.1 - PRESENCE OF AORTOCORONARY BYPASS GRAFT Assessment/Plan 1. Mechanical fall no LOC 2. Dizziness, ?etiology 3. CAD s/p CABG, angina pectoris 4. HTN 5. DM 6. Bronchial asthma 7. Demand ischemia PLAN: 1. Continue Metoprolol ER 100 mg QD and Losartan 100 mg QD 2. Continue ASA 81 mg QD 3. Continue Rosuvastatin 20 mg QHS 4. DVT prophylasix 5. Consider Meclizine PRN 6. Neurology evaluation. Await brain MRI 7. Echocardiography done in January this year and report reviewed Further plans are to follow Dave Mohr MD
[2019-03-22] MEDS: ASPIRIN COATED 81 MG TABLET.EC PO SCH (09:10)
[2019-03-22] MEDS: HEPARIN NA (PORCINE) 5,000 UNITS/ML 1ML VIAL SQ SCH ×2 (09:11→22:35)
[2019-03-22] MEDS ORDERED: LOSARTAN POTASSIUM 50 MG TABLET (FP) PO SCH (10:00)
--- NOTE | 2019-03-22 13:05 | PN ---
Physical Exam: SUBJECTIVE: Patient seen and examined. She says she feels better today. She denies dizziness, palpitations, SOB. OBJECTIVE: Vital Signs Period Temp Pulse Resp BP Sys/Pruitt Pulse Ox Last 24 Hr 97.3 F-98.4 F 57-76 18-23 135-187/61-105 96-100 GENERAL: The patient is awake, alert, and fully oriented, in no acute distress. LUNGS: Breath sounds equal, clear to auscultation bilaterally, no wheezes, no crackles, no accessory muscle use. HEART: Regular rate and rhythm, S1, S2 without murmur, rub or gallop. ABDOMEN: Obese, soft, nontender, nondistended, normoactive bowel sounds, no guarding, no rebound, no hepatosplenomegaly, no masses. EXTREMITIES: 2+ pulses, warm, well-perfused, no edema. Laboratory Results - last 24 hr 03/21/19 03/21/19 03/21/19 11:30 11:30 11:30 WBC 6.0 RBC 4.51 Hgb 12.3 Hct 37.9 MCV 84.0 MCH 27.3 MCHC 32.4 RDW 14.8 Plt Count 194 MPV 8.5 Absolute Neuts (auto) 4.4 Neutrophils % 72.8 Lymphocytes % 16.8 D Monocytes % 8.9 Eosinophils % 0.8 D Basophils % 0.7 Nucleated RBC % 0 Sodium 141 Potassium 4.3 Chloride 106 Carbon Dioxide 29 Anion Gap 6 L BUN 35.1 H Creatinine 1.0 Est GFR (CKD-EPI)AfAm 63.38 Est GFR (CKD-EPI)NonAf 54.68 POC Glucometer Random Glucose 129 H Hemoglobin A1c % Calcium 9.0 Phosphorus Magnesium Total Bilirubin 0.3 AST 8 L ALT 15 Alkaline Phosphatase 71 Creatine Kinase 123 Troponin I 0.19 H Total Protein 6.8 Albumin 3.6 Triglycerides Cholesterol Total LDL Cholesterol HDL Cholesterol Urine Color Urine Appearance Urine pH Ur Specific [place] Urine Protein Urine Glucose (UA) Urine Ketones Urine Blood Urine Nitrite Urine Bilirubin Urine Urobilinogen Ur Leukocyte Esterase 03/21/19 03/21/19 03/21/19 13:13 16:00 22:32 WBC RBC Hgb Hct MCV MCH MCHC RDW Plt Count MPV Absolute Neuts (auto) Neutrophils % Lymphocytes % Monocytes % Eosinophils % Basophils % Nucleated RBC % Sodium Potassium Chloride Carbon Dioxide Anion Gap BUN Creatinine Est GFR (CKD-EPI)AfAm Est GFR (CKD-EPI)NonAf POC Glucometer 203 Random Glucose Hemoglobin A1c % Calcium Phosphorus Magnesium Total Bilirubin AST ALT Alkaline Phosphatase Creatine Kinase Troponin I 0.20 H Total Protein Albumin Triglycerides Cholesterol Total LDL Cholesterol HDL Cholesterol Urine Color Yellow Urine Appearance Clear Urine pH 7.0 Ur Specific [place] 1.005 L Urine Protein Negative Urine Glucose (UA) Negative Urine Ketones Negative Urine Blood Negative Urine Nitrite Negative Urine Bilirubin Negative Urine Urobilinogen 0.2 Ur Leukocyte Esterase Negative 03/22/19 03/22/19 03/22/19 06:14 06:16 06:16 WBC 5.9 RBC 4.21 Hgb 11.6 Hct 34.9 MCV 82.9 MCH 27.5 MCHC 33.2 RDW 14.5 Plt Count 175 MPV 8.1 Absolute Neuts (auto) 3.8 Neutrophils % 64.3 Lymphocytes % 23.6 D Monocytes % 10.6 H Eosinophils % 0.8 Basophils % 0.7 Nucleated RBC % 0 Sodium 142 Potassium 3.8 Chloride 107 Carbon Dioxide 28 Anion Gap 7 L BUN 29.3 H Creatinine 1.0 Est GFR (CKD-EPI)AfAm 63.38 Est GFR (CKD-EPI)NonAf 54.68 POC Glucometer 136 Random Glucose 129 H Hemoglobin A1c % Calcium 8.5 Phosphorus 3.9 Magnesium 2.4 Total Bilirubin 0.3 AST 9 L ALT 14 Alkaline Phosphatase 61 Creatine Kinase 35 Troponin I 0.19 H Total Protein 5.8 L Albumin 3.3 L Triglycerides 140 Cholesterol 161 Total LDL Cholesterol 100 HDL Cholesterol 39 L Urine Color Urine Appearance Urine pH Ur Specific [place] Urine Protein Urine Glucose (UA) Urine Ketones Urine Blood Urine Nitrite Urine Bilirubin Urine Urobilinogen Ur Leukocyte Esterase 03/22/19 03/22/19 06:16 11:22 WBC RBC Hgb Hct MCV MCH MCHC RDW Plt Count MPV Absolute Neuts (auto) Neutrophils % Lymphocytes % Monocytes % Eosinophils % Basophils % Nucleated RBC % Sodium Potassium Chloride Carbon Dioxide Anion Gap BUN Creatinine Est GFR (CKD-EPI)AfAm Est GFR (CKD-EPI)NonAf POC Glucometer 199 Random Glucose Hemoglobin A1c % 6.8 H Calcium Phosphorus Magnesium Total Bilirubin AST ALT Alkaline Phosphatase Creatine Kinase Troponin I Total Protein Albumin Triglycerides Cholesterol Total LDL Cholesterol HDL Cholesterol Urine Color Urine Appearance Urine pH Ur Specific [place] Urine Protein Urine Glucose (UA) Urine Ketones Urine Blood Urine Nitrite Urine Bilirubin Urine Urobilinogen Ur Leukocyte Esterase Active Medications Generic Name Dose Route Start Last Admin Trade Name Amando PRN Reason Stop Dose Admin Aspirin 81 mg 03/22/19 10:00 03/22/19 09:10 Ecotrin - PO 81 mg DAILY [facility] Administration Heparin Sodium (Porcine) 5,000 unit 03/21/19 22:00 03/22/19 09:11 Heparin - SQ 5,000 unit BID [facility] Administration Insulin Aspart 1 vial 03/21/19 22:00 03/22/19 11:23 Novolog Vial Sliding Scale - SQ Not Given ACHS [facility] Protocol Losartan Potassium 50 mg 03/22/19 10:00 03/22/19 09:07 Cozaar - PO 50 mg DAILY [facility] Administration Metoprolol Succinate 100 mg 03/22/19 10:00 03/22/19 09:10 Toprol Xl - PO 100 mg DAILY [facility] Administration Rosuvastatin Calcium 20 mg 03/21/19 22:00 03/22/19 00:11 Crestor - PO Not Given HS [facility] ASSESSMENT/PLAN: This is a 78 year old woman with a history of CAD, CABG, HTN, hyperlipidemia, type 2 DM, asthma who presented to the ED with dizziness and a fall. 1. Dizziness - Neuro input appreciated - Secondary to chronic gait ataxia, hypertensive encephalopathy, diabetic neuropathy, possible labyrinthine dysfunction, early extrapyramidal features - Check orthostatic vitals - MRI of brain, B12, TSH ordered 2. s/p fall - PT evaluation noted - she became dizzy upon standing and could not participate 3. CAD, history of CABG - Continue aspirin, Toprol XL, Crestor 4. HTN - Continue Cozaar, Toprol XL 5. Hyperlipidemia - Continue Crestor 6. Type 2 DM - Metformin, glimepiride held - HbA1c 6.8 - Continue Novolog sliding scale 7. Asthma - Stable 8. Disposition - Will likely need short term rehab Visit type - Emergency Visit Emergency Visit: Yes ED Registration Date: 03/21/19 Care time: The patient presented to the Emergency Department on the above date and was hospitalized for further evaluation of their emergent condition. - New Patient This patient is new to me today: Yes Date on this admission: 03/22/19 - Critical Care Critical Care patient: No - Discharge Referral Referred to [facility] Med P.C.: No
[2019-03-22] MEDS ORDERED: LOSARTAN POTASSIUM 50 MG TABLET (FP) PO ONE (15:14)
[2019-03-23] MEDS: INSULIN SLIDING SCALE (NOVOLOG) 1 VIAL SQ SCH ×4 (06:14→21:37)
[2019-03-23 07:42] LABS: BLOOD UREA NITROGEN 32.8 mg/dL (7-18); CALCIUM 8.6 mg/dL (8.5-10.1); CREATININE 1.1 mg/dL (0.55-1.3); POTASSIUM 4.1 mmol/L (3.5-5.1)
--- NOTE | 2019-03-23 08:27 | PN ---
Progress Note, Physician Chief Complaint: States she feels better today-no further diziness History of Present Illness: 78yo woman with a PMH of CAD s/p CABG (11y ago at [facility]), HTN, DM and bronchial asthma who presents to ED with fall secondary to dizziness. She states that she has had the dizziness on and off for several months, and she was admitted to the hospital for workup, which was negative. Also reports L leg pain that has been present for the pat 1-2 months. She denies any other symptoms including chest pain, SOB, nausea/vomiting, fever/ chills, headache, change in vision or hearing, focal weakness or numbness. - Current Medication List Current Medications: Active Medications Aspirin (Ecotrin -) 81 mg PO DAILY [facility] Last Admin: 03/22/19 09:10 Dose: 81 mg Heparin Sodium (Porcine) (Heparin -) 5,000 unit SQ BID [facility] Last Admin: 03/22/19 22:35 Dose: 5,000 unit Insulin Aspart (Novolog Vial Sliding Scale -) 1 vial SQ ACHS [facility]; Protocol Last Admin: 03/23/19 06:14 Dose: Not Given Losartan Potassium (Cozaar -) 100 mg PO DAILY [facility] Metoprolol Succinate (Toprol Xl -) 100 mg PO DAILY [facility] Last Admin: 03/22/19 09:10 Dose: 100 mg Rosuvastatin Calcium (Crestor -) 20 mg PO HS [facility] Last Admin: 03/22/19 22:31 Dose: 20 mg - Objective Vital Signs: Vital Signs Temperature 98.1 F 03/23/19 05:59 Pulse Rate 55 L 03/23/19 05:59 Respiratory Rate 20 03/23/19 05:59 Blood Pressure 197/78 H 03/23/19 05:59 O2 Sat by Pulse Oximetry (%) 96 03/22/19 21:00 Constitutional: Yes: Well Nourished, No Distress, Calm Eyes: Yes: WNL, Conjunctiva Clear HENT: Yes: WNL, Atraumatic, Normocephalic Neck: Yes: WNL, Supple, Trachea Midline Cardiovascular: Yes: WNL, Regular Rate and Rhythm Respiratory: Yes: WNL, Regular, CTA Bilaterally Gastrointestinal: Yes: Normal Bowel Sounds, Soft, Abdomen, Obese ...Rectal Exam: Yes: Deferred Genitourinary: Yes: WNL Breast(s): Yes: WNL Musculoskeletal: Yes: WNL Extremities: Yes: WNL Edema: No Peripheral Pulses: Left Radial: 2+, Right Radial: 2+, Left Doralis Pedis: 2+, Right Dorsalis Pedis: 2+, Left Femoral: 2+, Right Femoral: 2+ Integumentary: Yes: WNL Neurological: Yes: WNL, Alert, Oriented ...Motor Strength: WNL Psychiatric: Yes: WNL Labs: CBC, BMP 03/22/19 06:16 03/23/19 06:00 Problem List - Problems (1) Fall Assessment/Plan: Neurology following and appreciates Brain done and results penpaulette c/w PT-not able to fully participate due to periods of dizziness yesterday TSH normal, B12 normal plan for SNF/STR on discharge Code(s): W19.XXXA - UNSPECIFIED FALL, INITIAL ENCOUNTER Qualifiers: Encounter type: subsequent encounter Qualified Code(s): W19.XXXD - Unspecified fall, subsequent encounter (2) Hypertension Assessment/Plan: c/w home meds-toprol/coozaar Code(s): I10 - ESSENTIAL (PRIMARY) HYPERTENSION Qualifiers: Hypertension type: essential hypertension Qualified Code(s): I10 - Essential (primary) hypertension (3) Near syncope Assessment/Plan: no further episode of syncope w/u in progress Code(s): R55 - SYNCOPE AND COLLAPSE (4) Bronchial asthma Assessment/Plan: stable due neds if needed Code(s): J45.909 - UNSPECIFIED ASTHMA, UNCOMPLICATED (5) CAD (coronary artery disease) Assessment/Plan: historyoff CABG c/w asa, toprol,crestor Code(s): I25.10 - ATHSCL HEART DISEASE OF [place] CORONARY ARTERY W/O ANG PCTRS Qualifiers: Coronary Disease-Associated Artery/Lesion type: [place] artery [place] vs. transplanted heart: [place] heart Associated angina: without angina Qualified Code(s): I25.10 - Atherosclerotic heart disease of [place] coronary artery without angina pectoris (6) Prophylactic measure Assessment/Plan: FEN adequate PO intake monitor electrolytes DVT no chemical agents given falls Dispo maiantain as in patient full code discharge to SNF/STR Code(s): Z29.9 - ENCOUNTER FOR PROPHYLACTIC MEASURES, UNSPECIFIED Visit type - Emergency Visit Emergency Visit: Yes ED Registration Date: 03/21/19 Care time: The patient presented to the Emergency Department on the above date and was hospitalized for further evaluation of their emergent condition. - New Patient This patient is new to me today: Yes Date on this admission: 03/24/19 - Critical Care Critical Care patient: No - Discharge Referral Referred to [facility] Med P.C.: No
--- NOTE | 2019-03-23 09:39 | PN ---
Progress Note, Physician History of Present Illness: No further dizziness or recurrent falls. - Current Medication List Current Medications: Active Medications Aspirin (Ecotrin -) 81 mg PO DAILY [facility] Last Admin: 03/22/19 09:10 Dose: 81 mg Heparin Sodium (Porcine) (Heparin -) 5,000 unit SQ BID [facility] Last Admin: 03/22/19 22:35 Dose: 5,000 unit Insulin Aspart (Novolog Vial Sliding Scale -) 1 vial SQ ACHS [facility]; Protocol Last Admin: 03/23/19 06:14 Dose: Not Given Losartan Potassium (Cozaar -) 100 mg PO DAILY [facility] Metoprolol Succinate (Toprol Xl -) 100 mg PO DAILY [facility] Last Admin: 03/22/19 09:10 Dose: 100 mg Rosuvastatin Calcium (Crestor -) 20 mg PO HS [facility] Last Admin: 03/22/19 22:31 Dose: 20 mg - Objective Vital Signs: Vital Signs Temperature 98.1 F 03/23/19 09:02 Pulse Rate 68 03/23/19 09:02 Respiratory Rate 20 03/23/19 09:02 Blood Pressure 180/104 H 03/23/19 09:02 O2 Sat by Pulse Oximetry (%) 96 03/23/19 09:00 Constitutional: Yes: No Distress, Calm Neck: Yes: Supple Cardiovascular: Yes: Regular Rate and Rhythm Respiratory: Yes: Regular, CTA Bilaterally Gastrointestinal: Yes: Normal Bowel Sounds, Soft Edema: No Labs: CBC, BMP 03/22/19 06:16 03/23/19 06:00 - ....Imaging EKG: Report Reviewed (Tele: NSR, no events) Problem List - Problems (1) Fall Code(s): W19.XXXA - UNSPECIFIED FALL, INITIAL ENCOUNTER Qualifiers: Encounter type: subsequent encounter Qualified Code(s): W19.XXXD - Unspecified fall, subsequent encounter (2) Hypertension Code(s): I10 - ESSENTIAL (PRIMARY) HYPERTENSION Qualifiers: Hypertension type: essential hypertension Qualified Code(s): I10 - Essential (primary) hypertension (3) Near syncope Code(s): R55 - SYNCOPE AND COLLAPSE (4) CAD (coronary artery disease) Code(s): I25.10 - ATHSCL HEART DISEASE OF [place] CORONARY ARTERY W/O ANG PCTRS Qualifiers: Coronary Disease-Associated Artery/Lesion type: [place] artery [place] vs. transplanted heart: [place] heart Associated angina: without angina Qualified Code(s): I25.10 - Atherosclerotic heart disease of [place] coronary artery without angina pectoris (5) Diabetes mellitus Code(s): E11.9 - TYPE 2 DIABETES MELLITUS WITHOUT COMPLICATIONS Qualifiers: Diabetes mellitus type: type 2 (6) H/O coronary artery bypass surgery Code(s): Z95.1 - PRESENCE OF AORTOCORONARY BYPASS GRAFT Assessment/Plan 1. Mechanical fall no LOC 2. Dizziness is probably multifactorial but predominately represents chronic gait ataxia, other factors include hypertensive encephalopathy, diabetic neuropathy, possible labyrinthine dysfunction and early extrapyramidal features 3. CAD s/p CABG, angina pectoris 4. HTN 5. DM 6. Bronchial asthma 7. Demand ischemia PLAN: 1. Continue Metoprolol ER 100 mg QD and Losartan 100 mg QD 2. Continue ASA 81 mg QD, troponins plateaued 3. Continue Rosuvastatin 20 mg QHS 4. DVT prophylasix 5. Consider Meclizine PRN 6. Appreciate Neurology evaluation. Await brain MRI, PT with gait training 7. Echocardiography done in January this year and report reviewed
[2019-03-23] MEDS: LOSARTAN POTASSIUM 50 MG TABLET (FP) PO SCH (09:54)
[2019-03-23] MEDS: HEPARIN NA (PORCINE) 5,000 UNITS/ML 1ML VIAL SQ SCH ×2 (09:55→21:37)
[2019-03-23] MEDS: ASPIRIN COATED 81 MG TABLET.EC PO SCH (09:55)
[2019-03-23] MEDS ORDERED: ACETAMINOPHEN 325 MG TABLET (FP) ONE (10:05)
[2019-03-23] MEDS ORDERED: PT OWN MED DRAWER 7, Y5N ONE (11:52)
[2019-03-23] MEDS ORDERED: INSULIN (NOVOLOG) ASPART 100 UNITS/ML 10ML VIAL ONE ×2 (11:53→16:42)
[2019-03-23] MEDS: ROSUVASTATIN CA 20 MG TABLET (FP) PO SCH (21:37)
[2019-03-24] MEDS: INSULIN SLIDING SCALE (NOVOLOG) 1 VIAL SQ SCH ×4 (06:47→22:42)
[2019-03-24] MEDS: HEPARIN NA (PORCINE) 5,000 UNITS/ML 1ML VIAL SQ SCH ×2 (09:28→22:41)
[2019-03-24] MEDS: ASPIRIN COATED 81 MG TABLET.EC PO SCH (09:29)
[2019-03-24] MEDS: ACETAMINOPHEN 325 MG TABLET (FP) PO PRN (09:29)
[2019-03-24] MEDS: LOSARTAN POTASSIUM 50 MG TABLET (FP) PO SCH (09:30)
--- NOTE | 2019-03-24 12:04 | PN ---
Progress Note, Physician Chief Complaint: Events noted Not in distress History of Present Illness: Patient was seen and examined. Awake and alert. Chart was reviewed Denies chest pain, SOB or palpitations - Current Medication List Current Medications: Active Medications Acetaminophen (Tylenol -) 650 mg PO Q6H PRN PRN Reason: PAIN LEVEL 7 - 10 Last Admin: 03/24/19 09:29 Dose: 650 mg Aspirin (Ecotrin -) 81 mg PO DAILY [facility] Last Admin: 03/24/19 09:29 Dose: 81 mg Heparin Sodium (Porcine) (Heparin -) 5,000 unit SQ BID [facility] Last Admin: 03/24/19 09:28 Dose: 5,000 unit Insulin Aspart (Novolog Vial Sliding Scale -) 1 vial SQ ACHS [facility]; Protocol Last Admin: 03/24/19 06:47 Dose: Not Given Losartan Potassium (Cozaar -) 100 mg PO DAILY [facility] Last Admin: 03/24/19 09:30 Dose: 100 mg Metoprolol Succinate (Toprol Xl -) 100 mg PO DAILY [facility] Last Admin: 03/24/19 09:28 Dose: 100 mg Rosuvastatin Calcium (Crestor -) 20 mg PO HS [facility] Last Admin: 03/23/19 21:37 Dose: 20 mg - Objective Vital Signs: Vital Signs Temperature 97.7 F 03/24/19 09:39 Pulse Rate 55 L 03/24/19 06:06 Respiratory Rate 20 03/24/19 09:39 Blood Pressure 199/88 H 03/24/19 09:39 O2 Sat by Pulse Oximetry (%) 94 L 03/23/19 21:00 Eyes: Yes: PERRL HENT: Yes: Atraumatic Neck: Yes: Supple Cardiovascular: Yes: Regular Rate and Rhythm, Murmur (SM), S1, S2 Respiratory: Yes: CTA Bilaterally Gastrointestinal: Yes: Normal Bowel Sounds, Soft. No: Tenderness Edema: No Additional Findings/Remarks: - Review of Systems Constitutional: denies: Chills, Fever Cardiovascular: denies: Chest Pain, Palpitations, Shortness of Breath Respiratory: denies: Cough, Hemoptysis, Orthopnea, PND, SOB, SOB on Exertion, Wheezing Gastrointestinal: denies: Abdominal Pain, Constipation, Diarrhea, Melena, Nausea , Rectal Bleeding, Vomiting Musculoskeletal: denies: Back Pain, Joint Pain Neurological: reports: Dizziness. denies: Headache, Seizure, Syncope Labs: CBC, BMP 03/22/19 06:16 03/23/19 06:00 Problem List - Problems (1) Elevated troponin Code(s): R79.89 - OTHER SPECIFIED ABNORMAL FINDINGS OF BLOOD CHEMISTRY (2) Hypertension Code(s): I10 - ESSENTIAL (PRIMARY) HYPERTENSION Qualifiers: Hypertension type: essential hypertension Qualified Code(s): I10 - Essential (primary) hypertension (3) Demand ischemia Code(s): I24.8 - OTHER FORMS OF ACUTE ISCHEMIC HEART DISEASE (4) Fall as cause of accidental injury in home as place of occurrence Code(s): W19.XXXA - UNSPECIFIED FALL, INITIAL ENCOUNTER; Y92.009 - UNSP PLACE IN UNSP NON-INSTITUT (PRIVATE) RESIDENCE PLACE (5) CAD (coronary artery disease) Code(s): I25.10 - ATHSCL HEART DISEASE OF [place] CORONARY ARTERY W/O ANG PCTRS Qualifiers: Coronary Disease-Associated Artery/Lesion type: [place] artery [place] vs. transplanted heart: [place] heart Associated angina: without angina Qualified Code(s): I25.10 - Atherosclerotic heart disease of [place] coronary artery without angina pectoris (6) Diabetes mellitus Code(s): E11.9 - TYPE 2 DIABETES MELLITUS WITHOUT COMPLICATIONS Qualifiers: Diabetes mellitus type: type 2 (7) H/O coronary artery bypass surgery Code(s): Z95.1 - PRESENCE OF AORTOCORONARY BYPASS GRAFT Assessment/Plan 1. Mechanical fall no LOC 2. Dizziness, ? etiology 3. CAD s/p CABG, angina pectoris 4. HTN - labile 5. DM 6. Bronchial asthma 7. Demand ischemia PLAN: 1. Continue Metoprolol ER 100 mg QD and Losartan 100 mg QD. Add Amlodipine 10 mg QD 2. Continue ASA 81 mg QD 3. Continue Rosuvastatin 20 mg QHS 4. DVT prophylasix 5. Meclizine PRN 6. Neurology input to follow. Brain MRI report noted Further plans are to follow Dave Mohr MD
[2019-03-24] MEDS: amLODIPine BESYLATE 10 MG TABLET (FP) PO SCH (12:17)
--- NOTE | 2019-03-24 16:05 | PN ---
Physical Exam: SUBJECTIVE: Patient seen and examined at the bedside. no further dizziness. no headaches OBJECTIVE: Patient is a 78yo woman with a PMH of CAD s/p CABG (11y ago at [facility]), HTN, DM and bronchial asthma who presents to ED with fall secondary to dizziness. She states that she has had the dizziness on and off for several months, and she was admitted to the hospital for workup, which was negative. Also reports L leg pain that has been present for the past 1-2 months. She denies any other symptoms including chest pain, SOB, nausea/vomiting, fever/ chills, headache, change in vision or hearing, focal weakness or numbness. Vital Signs Period Temp Pulse Resp BP Sys/Pruitt Pulse Ox Last 24 Hr 97.2 F-99.0 F 55-72 18-20 150-199/70-91 94-96 GENERAL: The patient is awake, alert, and fully oriented, in no acute distress. HEAD: Normal with no signs of trauma. EYES: PERRL, extraocular movements intact, sclera anicteric, conjunctiva clear. No ptosis. ENT: Ears normal, nares patent, oropharynx clear without exudates, moist mucous membranes. NECK: Trachea midline, full range of motion, supple. LUNGS: Breath sounds equal, clear to auscultation bilaterally, no wheezes, no crackles, no accessory muscle use. HEART: Regular rate and rhythm, S1, S2 without murmur, rub or gallop. ABDOMEN: Soft, nontender, nondistended, normoactive bowel sounds, no guarding, no rebound, no hepatosplenomegaly, no masses. EXTREMITIES:+1 lower ext edema bilaterall, hyperpigmentation of left lower ext. NEUROLOGICAL: Normal speech, gait not observed. PSYCH: Normal mood, normal affect. SKIN: Warm, dry, normal turgor, no rashes or lesions noted Laboratory Results - last 24 hr 03/23/19 03/23/19 03/24/19 16:39 21:34 06:43 POC Glucometer 158 149 130 03/24/19 11:49 POC Glucometer 205 Active Medications Generic Name Dose Route Start Last Admin Trade Name Freq PRN Reason Stop Dose Admin Acetaminophen 650 mg 03/24/19 09:02 03/24/19 09:29 Tylenol - PO 650 mg Q6H PRN Administration PAIN LEVEL 7 - 10 Amlodipine Besylate 10 mg 03/24/19 12:15 03/24/19 12:17 Norvasc - PO 10 mg DAILY [facility] Administration Aspirin 81 mg 03/22/19 10:00 03/24/19 09:29 Ecotrin - PO 81 mg DAILY [facility] Administration Heparin Sodium (Porcine) 5,000 unit 03/21/19 22:00 03/24/19 09:28 Heparin - SQ 5,000 unit BID [facility] Administration Insulin Aspart 1 vial 03/22/19 16:30 03/24/19 12:17 Novolog Vial Sliding Scale - SQ 4 units ACHS [facility] Administration Protocol Losartan Potassium 100 mg 03/23/19 10:00 03/24/19 09:30 Cozaar - PO 100 mg DAILY [facility] Administration Metoprolol Succinate 100 mg 03/22/19 10:00 03/24/19 09:28 Toprol Xl - PO 100 mg DAILY [facility] Administration Rosuvastatin Calcium 20 mg 03/21/19 22:00 03/23/19 21:37 Crestor - PO 20 mg HS [facility] Administration ASSESSMENT/PLAN: Problem List - Problems (1) Fall Assessment/Plan: Neurology following and appreciates Brain mri shows possible small aneurym c/w PT-not able to fully participate due to periods of dizziness yesterday TSH normal, B12 normal plan for SNF/STR on discharge Code(s): W19.XXXA - UNSPECIFIED FALL, INITIAL ENCOUNTER Qualifiers: Encounter type: subsequent encounter Qualified Code(s): W19.XXXD - Unspecified fall, subsequent encounter (2) Hypertension Assessment/Plan: elevated today per brain mri, patient shows long standing uncontrolled bp Code(s): I10 - ESSENTIAL (PRIMARY) HYPERTENSION Qualifiers: Hypertension type: essential hypertension Qualified Code(s): I10 - Essential (primary) hypertension (3) Near syncope Assessment/Plan: no further falls physical therapy following Code(s): R55 - SYNCOPE AND COLLAPSE (4) Demand ischemia Code(s): I24.8 - OTHER FORMS OF ACUTE ISCHEMIC HEART DISEASE (5) Fall as cause of accidental injury in home as place of occurrence Assessment/Plan: for physical therapy eval Code(s): W19.XXXA - UNSPECIFIED FALL, INITIAL ENCOUNTER; Y92.009 - UNSP PLACE IN UNSP NON-INSTITUT (PRIVATE) RESIDENCE PLACE (6) Prophylactic measure Code(s): Z29.9 - ENCOUNTER FOR PROPHYLACTIC MEASURES, UNSPECIFIED Visit type - Emergency Visit Emergency Visit: Yes ED Registration Date: 03/21/19 Care time: The patient presented to the Emergency Department on the above date and was hospitalized for further evaluation of their emergent condition. - New Patient This patient is new to me today: Yes Date on this admission: 03/25/19 - Critical Care Critical Care patient: No - Discharge Referral Referred to [facility] No
[2019-03-24] MEDS: ROSUVASTATIN CA 20 MG TABLET (FP) PO SCH (22:41)
[2019-03-25] MEDS: ACETAMINOPHEN 325 MG TABLET (FP) PO PRN ×2 (08:05→21:30)
[2019-03-25] MEDS: HEPARIN NA (PORCINE) 5,000 UNITS/ML 1ML VIAL SQ SCH ×2 (10:24→21:32)
[2019-03-25] MEDS: amLODIPine BESYLATE 10 MG TABLET (FP) PO SCH (10:25)
[2019-03-25] MEDS: ASPIRIN COATED 81 MG TABLET.EC PO SCH (10:25)
[2019-03-25] MEDS: LOSARTAN POTASSIUM 50 MG TABLET (FP) PO SCH (10:25)
--- NOTE | 2019-03-25 10:46 | PN ---
Progress Note, Physician History of Present Illness: No further dizziness or recurrent falls. - Current Medication List Current Medications: Active Medications Acetaminophen (Tylenol -) 650 mg PO Q6H PRN PRN Reason: PAIN LEVEL 7 - 10 Last Admin: 03/25/19 08:05 Dose: 650 mg Amlodipine Besylate (Norvasc -) 10 mg PO DAILY [facility] Last Admin: 03/25/19 10:25 Dose: 10 mg Aspirin (Ecotrin -) 81 mg PO DAILY [facility] Last Admin: 03/25/19 10:25 Dose: 81 mg Heparin Sodium (Porcine) (Heparin -) 5,000 unit SQ BID [facility] Last Admin: 03/25/19 10:24 Dose: 5,000 unit Insulin Aspart (Novolog Vial Sliding Scale -) 1 vial SQ ACHS [facility]; Protocol Last Admin: 03/24/19 22:42 Dose: 6 units Losartan Potassium (Cozaar -) 100 mg PO DAILY [facility] Last Admin: 03/25/19 10:25 Dose: 100 mg Metoprolol Succinate (Toprol Xl -) 100 mg PO DAILY [facility] Last Admin: 03/25/19 10:25 Dose: 100 mg Rosuvastatin Calcium (Crestor -) 20 mg PO HS [facility] Last Admin: 03/24/19 22:41 Dose: 20 mg - Objective Vital Signs: Vital Signs Temperature 97.6 F 03/25/19 10:00 Pulse Rate 88 03/25/19 10:00 Respiratory Rate 18 03/25/19 10:00 Blood Pressure 142/83 03/25/19 10:00 O2 Sat by Pulse Oximetry (%) 94 L 03/24/19 21:00 Constitutional: Yes: No Distress, Calm Neck: Yes: Supple Cardiovascular: Yes: Regular Rate and Rhythm Respiratory: Yes: Regular, CTA Bilaterally Gastrointestinal: Yes: Normal Bowel Sounds, Soft, Abdomen, Obese Edema: No Labs: CBC, BMP 03/22/19 06:16 03/23/19 06:00 - ....Imaging EKG: Report Reviewed (Tele: NSR) Problem List - Problems (1) Fall Code(s): W19.XXXA - UNSPECIFIED FALL, INITIAL ENCOUNTER Qualifiers: Encounter type: subsequent encounter Qualified Code(s): W19.XXXD - Unspecified fall, subsequent encounter (2) Hypertension Code(s): I10 - ESSENTIAL (PRIMARY) HYPERTENSION Qualifiers: Hypertension type: essential hypertension Qualified Code(s): I10 - Essential (primary) hypertension (3) Near syncope Code(s): R55 - SYNCOPE AND COLLAPSE (4) CAD (coronary artery disease) Code(s): I25.10 - ATHSCL HEART DISEASE OF [place] CORONARY ARTERY W/O ANG PCTRS Qualifiers: Coronary Disease-Associated Artery/Lesion type: [place] artery [place] vs. transplanted heart: [place] heart Associated angina: without angina Qualified Code(s): I25.10 - Atherosclerotic heart disease of [place] coronary artery without angina pectoris (5) Diabetes mellitus Code(s): E11.9 - TYPE 2 DIABETES MELLITUS WITHOUT COMPLICATIONS Qualifiers: Diabetes mellitus type: type 2 (6) H/O coronary artery bypass surgery Code(s): Z95.1 - PRESENCE OF AORTOCORONARY BYPASS GRAFT Assessment/Plan 01/27/2019 Normal LV size and fxn LVEF 65%, abnl LV compliance, normal RV size and fxn, mild MR, TR 03/24/2019 Brain MRI: Extensive ischemic changes bilaterally c/w SVID or hypertensive encephelopathy 1. Mechanical fall no LOC 2. Dizziness is probably multifactorial but predominately represents chronic gait ataxia, other factors include hypertensive encephalopathy, diabetic neuropathy, possible labyrinthine dysfunction and early extrapyramidal features 3. CAD s/p CABG, angina pectoris 4. HTN labile 5. DM 6. Bronchial asthma 7. Demand ischemia PLAN: 1. Continue Metoprolol ER 100 mg QD, Losartan 100 mg QD, Norvasc 10 qd 2. Continue ASA 81 mg QD, troponins plateaued 3. Continue Rosuvastatin 20 mg QHS 4. DVT prophylasix 5. Consider Meclizine PRN 6. Appreciate Neurology evaluation. PT with gait training->SNF
[2019-03-25] MEDS: INSULIN SLIDING SCALE (NOVOLOG) 1 VIAL SQ SCH ×3 (12:31→21:30)
[2019-03-25 15:15] LABS: BASO % 0.6 % (0-2.0); EOS % 0.8 % (0-4.5); HEMATOCRIT 35.6 % (32.4-45.2); HEMOGLOBIN 11.7 GM/dL (10.7-15.3); LYMPH % 13.7 % (8-40); MCH 27.3 pg (25.7-33.7); MCHC 32.9 g/dl (32.0-36.0); MEAN CELL VOLUME 83.2 fl (80-96); MEAN PLT VOLUME 8.7 fl (7.5-11.1); MONO % 10.5 % (3.8-10.2); NEUT % 74.4 % (42.8-82.8); PLATELET COUNT 172 K/MM3 (134-434); RBC 4.28 M/mm3 (3.60-5.2); RDW 14.9 % (11.6-15.6); WHITE BLOOD COUNT 7.1 K/mm3 (4.0-10.0)
[2019-03-25 15:59] LABS: ALBUMIN 3.2 g/dl (3.4-5.0); BILIRUBIN,TOTAL 0.4 mg/dL (0.2-1); CALCIUM 8.2 mg/dL (8.5-10.1); CREATININE 1.2 mg/dL (0.55-1.3); MAGNESIUM 2.5 mg/dL (1.8-2.4); POTASSIUM 4.5 mmol/L (3.5-5.1); TOT PROT 6.5 g/dl (6.4-8.2)
--- NOTE | 2019-03-25 17:39 | PN ---
Physical Exam: SUBJECTIVE: Patient seen and examined. no further dizziness, no headaches. OBJECTIVE: d/c to snf pending Patient is a 78yo woman with a PMH of CAD s/p CABG (11y ago at [facility]), HTN, DM and bronchial asthma who presents to ED with fall secondary to dizziness. She states that she has had the dizziness on and off for several months, and she was admitted to the hospital for workup, which was negative. Also reports L leg pain that has been present for the past 1-2 months. She denies any other symptoms including chest pain, SOB, nausea/vomiting, fever/ chills, headache, change in vision or hearing, focal weakness or numbness. for brain mra to further evaluate findings of possible aneurysm seen on brain mri Vital Signs Period Temp Pulse Resp BP Sys/Pruitt Pulse Ox Last 24 Hr 97.6 F-98.6 F 57-88 18-18 132-180/60-110 94 GENERAL: The patient is awake, alert, and fully oriented, in no acute distress. HEAD: Normal with no signs of trauma. EYES: PERRL, extraocular movements intact, sclera anicteric, conjunctiva clear. No ptosis. ENT: Ears normal, nares patent, oropharynx clear without exudates, moist mucous membranes. NECK: Trachea midline, full range of motion, supple. LUNGS: Breath sounds equal, clear to auscultation bilaterally, no wheezes, no crackles, no accessory muscle use. HEART: Regular rate and rhythm, S1, S2 without murmur, rub or gallop. ABDOMEN: Soft, nontender, nondistended, normoactive bowel sounds, no guarding, no rebound, no hepatosplenomegaly, no masses. EXTREMITIES:+1 lower ext edema bilaterall, hyperpigmentation of left lower ext. NEUROLOGICAL: Normal speech, gait not observed. PSYCH: Normal mood, normal affect. SKIN: Warm, dry, normal turgor, no rashes or lesions noted Laboratory Results - last 24 hr 03/24/19 03/25/19 03/25/19 22:38 06:49 11:41 WBC RBC Hgb Hct MCV MCH MCHC RDW Plt Count MPV Absolute Neuts (auto) Neutrophils % Lymphocytes % Monocytes % Eosinophils % Basophils % Nucleated RBC % Sodium Potassium Chloride Carbon Dioxide Anion Gap BUN Creatinine Est GFR (CKD-EPI)AfAm Est GFR (CKD-EPI)NonAf POC Glucometer 295 103 299 Random Glucose Calcium Magnesium Total Bilirubin AST ALT Alkaline Phosphatase Total Protein Albumin 03/25/19 03/25/19 03/25/19 12:01 14:30 14:30 WBC 7.1 RBC 4.28 Hgb 11.7 Hct 35.6 MCV 83.2 MCH 27.3 MCHC 32.9 RDW 14.9 Plt Count 172 MPV 8.7 Absolute Neuts (auto) 5.2 Neutrophils % 74.4 Lymphocytes % 13.7 D Monocytes % 10.5 H Eosinophils % 0.8 Basophils % 0.6 Nucleated RBC % 0 Sodium 138 Potassium 4.5 Chloride 104 Carbon Dioxide 28 Anion Gap 5 L BUN 31.0 H Creatinine 1.2 Est GFR (CKD-EPI)AfAm 50.84 Est GFR (CKD-EPI)NonAf 43.86 POC Glucometer 269 Random Glucose 310 H Calcium 8.2 L Magnesium 2.5 H Total Bilirubin 0.4 AST 10 L ALT 18 Alkaline Phosphatase 67 Total Protein 6.5 Albumin 3.2 L Active Medications Generic Name Dose Route Start Last Admin Trade Name Freq PRN Reason Stop Dose Admin Acetaminophen 650 mg 03/24/19 09:02 03/25/19 08:05 Tylenol - PO 650 mg Q6H PRN Administration PAIN LEVEL 7 - 10 Amlodipine Besylate 10 mg 03/24/19 12:15 03/25/19 10:25 Norvasc - PO 10 mg DAILY [facility] Administration Aspirin 81 mg 03/22/19 10:00 03/25/19 10:25 Ecotrin - PO 81 mg DAILY [facility] Administration Heparin Sodium (Porcine) 5,000 unit 03/21/19 22:00 03/25/19 10:24 Heparin - SQ 5,000 unit BID [facility] Administration Insulin Aspart 1 vial 03/22/19 16:30 03/25/19 12:31 Novolog Vial Sliding Scale - SQ 6 units ACHS [facility] Administration Protocol Losartan Potassium 100 mg 03/23/19 10:00 03/25/19 10:25 Cozaar - PO 100 mg DAILY [facility] Administration Metoprolol Succinate 100 mg 03/22/19 10:00 03/25/19 10:25 Toprol Xl - PO 100 mg DAILY [facility] Administration Rosuvastatin Calcium 20 mg 03/21/19 22:00 03/24/19 22:41 Crestor - PO 20 mg HS [facility] Administration ASSESSMENT/PLAN: Problem List - Problems (1) Fall Assessment/Plan: Neurology following and appreciates Brain mri shows possible small aneurym c/w PT-not able to fully participate due to periods of dizziness yesterday TSH normal, B12 normal plan for SNF/STR on discharge Code(s): W19.XXXA - UNSPECIFIED FALL, INITIAL ENCOUNTER Qualifiers: Encounter type: subsequent encounter Qualified Code(s): W19.XXXD - Unspecified fall, subsequent encounter (2) Hypertension Assessment/Plan: elevated today per brain mri, patient shows long standing uncontrolled bp On metoprolol ER 100 mg qd, Losartan 100 mg qd, Norvasc 10 qd Code(s): I10 - ESSENTIAL (PRIMARY) HYPERTENSION Qualifiers: Hypertension type: essential hypertension Qualified Code(s): I10 - Essential (primary) hypertension (3) Near syncope Assessment/Plan: no further falls physical therapy following Code(s): R55 - SYNCOPE AND COLLAPSE (4) Demand ischemia Code(s): I24.8 - OTHER FORMS OF ACUTE ISCHEMIC HEART DISEASE (5) Fall as cause of accidental injury in home as place of occurrence Assessment/Plan: for physical therapy eval Code(s): W19.XXXA - UNSPECIFIED FALL, INITIAL ENCOUNTER; Y92.009 - UNSP PLACE IN UNSP NON-[facility] (PRIVATE[facility] RESIDENCE PLACE (6) Prophylactic measure Code(s): Z29.9 - ENCOUNTER FOR PROPHYLACTIC MEASURES, UNSPECIFIED Visit type - Emergency Visit Emergency Visit: Yes ED Registration Date: 03/21/19 Care time: The patient presented to the Emergency Department on the above date and was hospitalized for further evaluation of their emergent condition. - New Patient This patient is new to me today: No - Critical Care Critical Care patient: No - Discharge Referral Referred to [facility] Med [facility].C.: No
--- NOTE | 2019-03-25 19:29 | PN ---
Progress Note (short form) - Note Progress Note: NEUROLOGY PROGRESS: Events reviewed and discussed with Dr. Gonzalez. Patient is still not ambulatory and requires assist with most ADL's. She describes "3 years" of burning in legs at night, diffusely, interrupting sleep, attributed to "Neuropathy." She is aware of a rhythmic rest tremor in the left leg. MRI of brain shows striking, diffuse, white matter microvascular changes and multiple basal ganglia lacunar infarcts. Basilar aneursym not seen. MR Angio done but not yet read. I suspect there is a moderate mid-basilar stenosis but no aneursym or other l;arge vessel occlusion disease. EXAM: Rhythmic left leg rest tremor. Masked facies. Coughs after H20 + cogwheel rigidity (L>R) Normal strength. Areflexic in legs Feels vibration in the feet! Retropulsive. Shuffling. 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 SUGGEST: Begin Sinemet CR 25/100 TID at 7, 12, 5 Begin Pramipexole .25 q HS Short term rehab for gait with walker and D/C with SPEECH CLINICIAN. Thank you very much, Spencer James MD
[2019-03-25] MEDS: ROSUVASTATIN CA 20 MG TABLET (FP) PO SCH (21:32)
[2019-03-25] MEDS ORDERED: PRAMIPEXOLE DIHYDROCHLORIDE 0.25 MG TABLET PO SCH (22:00)
[2019-03-26] MEDS: INSULIN SLIDING SCALE (NOVOLOG) 1 VIAL SQ SCH ×3 (00:48→11:22)
[2019-03-26 06:31] VITALS: TEMP 97.8
[2019-03-26 07:09] LABS: BASO % 0.9 % (0-2.0); EOS % 1.2 % (0-4.5); HEMATOCRIT 32.5 % (32.4-45.2); HEMOGLOBIN 10.9 GM/dL (10.7-15.3); LYMPH % 24.2 % (8-40); MCH 27.9 pg (25.7-33.7); MCHC 33.4 g/dl (32.0-36.0); MEAN CELL VOLUME 83.5 fl (80-96); MEAN PLT VOLUME 8.6 fl (7.5-11.1); MONO % 10.7 % (3.8-10.2); PLATELET COUNT 165 K/MM3 (134-434); RBC 3.89 M/mm3 (3.60-5.2); RDW 15.4 % (11.6-15.6); WHITE BLOOD COUNT 5.9 K/mm3 (4.0-10.0)
[2019-03-26 07:36] LABS: ALBUMIN 2.8 g/dl (3.4-5.0); BILIRUBIN,TOTAL 0.3 mg/dL (0.2-1); BLOOD UREA NITROGEN 29.5 mg/dL (7-18); CALCIUM 8.1 mg/dL (8.5-10.1); CREATININE 0.9 mg/dL (0.55-1.3); MAGNESIUM 2.4 mg/dL (1.8-2.4); POTASSIUM 4.4 mmol/L (3.5-5.1); TOT PROT 5.7 g/dl (6.4-8.2)
[2019-03-26] MEDS: ACETAMINOPHEN 325 MG TABLET (FP) PO PRN (07:58)
--- NOTE | 2019-03-26 08:37 | PN ---
Progress Note, Physician History of Present Illness: No further dizziness or recurrent falls. Reports arthritic pain for which she takes Mobic. - Current Medication List Current Medications: Active Medications Acetaminophen (Tylenol -) 650 mg PO Q6H PRN PRN Reason: PAIN LEVEL 7 - 10 Last Admin: 03/26/19 07:58 Dose: 650 mg Amlodipine Besylate (Norvasc -) 10 mg PO DAILY [facility] Last Admin: 03/25/19 10:25 Dose: 10 mg Aspirin (Ecotrin -) 81 mg PO DAILY [facility] Last Admin: 03/25/19 10:25 Dose: 81 mg Carbidopa/Levodopa (Sinemet *Cr* 25/100 -) 1 combo PO TIDCM [facility] Carbidopa/Levodopa (Sinemet *Cr* 25/100 -) 0.5 combo PO TIDCM [facility] Stop: 03/26/19 12:01 Last Admin: 03/26/19 08:35 Dose: 0.5 combo Heparin Sodium (Porcine) (Heparin -) 5,000 unit SQ BID [facility] Last Admin: 03/25/19 21:32 Dose: 5,000 unit Insulin Aspart (Novolog Vial Sliding Scale -) 1 vial SQ [facility]; Protocol Last Admin: 03/26/19 06:35 Dose: 2 units Losartan Potassium (Cozaar -) 100 mg PO DAILY [facility] Last Admin: 03/25/19 10:25 Dose: 100 mg Metoprolol Succinate (Toprol Xl -) 100 mg PO DAILY [facility] Last Admin: 03/25/19 10:25 Dose: 100 mg Pramipexole Dihydrochloride (Mirapex -) 0.25 mg PO [facility] Last Admin: 03/25/19 21:30 Dose: 0.25 mg Rosuvastatin Calcium (Crestor -) 20 mg PO [facility] Last Admin: 03/25/19 21:32 Dose: 20 mg - Objective Vital Signs: Vital Signs Temperature 97.8 F 03/26/19 06:29 Pulse Rate 62 03/26/19 06:29 Respiratory Rate 18 03/26/19 06:29 Blood Pressure 171/80 H 03/26/19 06:29 O2 Sat by Pulse Oximetry (%) 96 03/25/19 21:00 Constitutional: Yes: No Distress, Calm Neck: Yes: Supple Cardiovascular: Yes: Regular Rate and Rhythm Respiratory: Yes: Regular, CTA Bilaterally Gastrointestinal: Yes: Normal Bowel Sounds, Soft Edema: No Labs: CBC, BMP 03/26/19 06:05 03/26/19 06:05 Problem List - Problems (1) Fall Code(s): W19.XXXA - UNSPECIFIED FALL, INITIAL ENCOUNTER Qualifiers: Encounter type: subsequent encounter Qualified Code(s): W19.XXXD - Unspecified fall, subsequent encounter (2) Hypertension Code(s): I10 - ESSENTIAL (PRIMARY) HYPERTENSION Qualifiers: Hypertension type: essential hypertension Qualified Code(s): I10 - Essential (primary) hypertension (3) Near syncope Code(s): R55 - SYNCOPE AND COLLAPSE (4) CAD (coronary artery disease) Code(s): I25.10 - ATHSCL HEART DISEASE OF [place] CORONARY ARTERY W/O ANG PCTRS Qualifiers: Coronary Disease-Associated Artery/Lesion type: [place] artery [place] vs. transplanted heart: [place] heart Associated angina: without angina Qualified Code(s): I25.10 - Atherosclerotic heart disease of [place] coronary artery without angina pectoris (5) Diabetes mellitus Code(s): E11.9 - TYPE 2 DIABETES MELLITUS WITHOUT COMPLICATIONS Qualifiers: Diabetes mellitus type: type 2 (6) H/O coronary artery bypass surgery Code(s): Z95.1 - PRESENCE OF AORTOCORONARY BYPASS GRAFT Assessment/Plan 01/27/2019 Normal LV size and fxn LVEF 65%, abnl LV compliance, normal RV size and fxn, mild MR, TR 03/24/2019 Brain MRI: Extensive ischemic changes bilaterally c/w SVID or hypertensive encephelopathy 1. Mechanical fall no LOC 2. Dizziness is probably multifactorial but predominately represents chronic gait ataxia due to: Severe [employer] OPER[employer] microvasculopathy, Parkinson's Disease, Restless Legs Syndrome associated with PD 3. CAD s/p CABG, angina pectoris 4. HTN labile 5. DM 6. Bronchial asthma 7. Demand ischemia PLAN: 1. Continue Metoprolol ER 100 mg QD, Losartan 100 mg QD, Norvasc 10 qd 2. Continue ASA 81 mg QD, troponins plateaued 3. Continue Rosuvastatin 20 mg QHS 4. DVT prophylaxis 5. Parkinson and RLS treatments, start Mobic 15 qd 6. Appreciate Neurology evaluation. PT with gait training->SNF
[2019-03-26] MEDS ORDERED: CELECOXIB 100 MG CAPSULE PO PRN (09:35)
[2019-03-26] MEDS ORDERED: CELECOXIB 100 MG CAPSULE PO SCH (10:00)
[2019-03-26 10:06] VITALS: BP 171/74; PULSE 67
[2019-03-26] MEDS: amLODIPine BESYLATE 10 MG TABLET (FP) PO SCH (10:14)
[2019-03-26] MEDS: LOSARTAN POTASSIUM 50 MG TABLET (FP) PO SCH (10:14)
[2019-03-26] MEDS: ASPIRIN COATED 81 MG TABLET.EC PO SCH (10:15)
[2019-03-26] MEDS: HEPARIN NA (PORCINE) 5,000 UNITS/ML 1ML VIAL SQ SCH (10:16)
--- NOTE | 2019-03-26 12:15 | DS ---
Physical Exam: SUBJECTIVE: Patient seen and examined OBJECTIVE: Vital Signs Period Temp Pulse Resp BP Sys/Pruitt Pulse Ox Last 24 Hr 97.3 F-98.2 F 60-69 18-20 132-179/54-98 96-96 PHYSICAL EXAM GENERAL: The patient is awake, alert, and fully oriented, in no acute distress. HEAD: Normal with no signs of trauma. EYES: PERRL, extraocular movements intact, sclera anicteric, conjunctiva clear. ENT: Ears normal, nares patent, oropharynx clear without exudates, moist mucous membranes. NECK: Trachea midline, full range of motion, supple. LUNGS: Breath sounds equal, clear to auscultation bilaterally, no wheezes, no crackles, no accessory muscle use. HEART: Regular rate and rhythm, S1, S2 without murmur, rub or gallop. ABDOMEN: Soft, nontender, nondistended, normoactive bowel sounds, no guarding, no rebound, no hepatosplenomegaly, no masses. EXTREMITIES: 2+ pulses, warm, well-perfused, no edema. NEUROLOGICAL: Cranial nerves II through XII grossly intact. Normal speech, gait not observed. PSYCH: Normal mood, normal affect. SKIN: Warm, dry, normal turgor, no rashes or lesions noted. LABS Laboratory Results - last 24 hr 03/25/19 03/25/19 03/25/19 14:30 14:30 18:24 WBC 7.1 RBC 4.28 Hgb 11.7 Hct 35.6 MCV 83.2 MCH 27.3 MCHC 32.9 RDW 14.9 Plt Count 172 MPV 8.7 Absolute Neuts (auto) 5.2 Neutrophils % 74.4 Lymphocytes % 13.7 D Monocytes % 10.5 H Eosinophils % 0.8 Basophils % 0.6 Nucleated RBC % 0 Sodium 138 Potassium 4.5 Chloride 104 Carbon Dioxide 28 Anion Gap 5 L BUN 31.0 H Creatinine 1.2 Est GFR (CKD-EPI)AfAm 50.84 Est GFR (CKD-EPI)NonAf 43.86 POC Glucometer 201 Random Glucose 310 H Calcium 8.2 L Magnesium 2.5 H Total Bilirubin 0.4 AST 10 L ALT 18 Alkaline Phosphatase 67 Total Protein 6.5 Albumin 3.2 L 03/25/19 03/26/19 03/26/19 21:27 06:00 06:05 WBC 5.9 RBC 3.89 Hgb 10.9 Hct 32.5 MCV 83.5 MCH 27.9 MCHC 33.4 RDW 15.4 Plt Count 165 MPV 8.6 Absolute Neuts (auto) 3.7 Neutrophils % 63.0 Lymphocytes % 24.2 D Monocytes % 10.7 H Eosinophils % 1.2 Basophils % 0.9 Nucleated RBC % 0 Sodium Potassium Chloride Carbon Dioxide Anion Gap BUN Creatinine Est GFR (CKD-EPI)AfAm Est GFR (CKD-EPI)NonAf POC Glucometer 230 172 Random Glucose Calcium Magnesium Total Bilirubin AST ALT Alkaline Phosphatase Total Protein Albumin 03/26/19 03/26/19 06:05 11:20 WBC RBC Hgb Hct MCV MCH MCHC RDW Plt Count MPV Absolute Neuts (auto) Neutrophils % Lymphocytes % Monocytes % Eosinophils % Basophils % Nucleated RBC % Sodium 140 Potassium 4.4 Chloride 108 H Carbon Dioxide 28 Anion Gap 5 L BUN 29.5 H Creatinine 0.9 Est GFR (CKD-EPI)AfAm 71.98 Est GFR (CKD-EPI)NonAf 62.11 POC Glucometer 211 Random Glucose 162 H Calcium 8.1 L Magnesium 2.4 Total Bilirubin 0.3 AST 7 L ALT 7 L Alkaline Phosphatase 57 Total Protein 5.7 L Albumin 2.8 L HOSPITAL COURSE: Date of Admission:03/21/19 Date of Discharge: 03/26/19 Discharge Summary Problems reviewed: Yes Reason For Visit: PRE-SYNCOPE/ELEVATED TROPONIN LEVEL/HYPERTENSION Current Active Problems Elevated troponin (Acute) Fall (Acute) Hypertension (Acute) Near syncope (Acute) Prophylactic measure (Acute) Condition: Improved - Instructions Referrals: Felipe Pollard MD [Primary Care Provider] - Barrie Santoro MD [Staff Physician] - Disposition: [facility] - Home Medications Comprehensive Discharge Medication List: Ambulatory Orders Metoprolol Succinate 100 mg PO DAILY 12/05/18 Glimepiride 2 mg PO DAILY 01/26/19 Meloxicam 15 mg PO DAILY 01/26/19 Olopatadine HCl [Pazeo] 2.5 ml DAILY 01/26/19 Acetaminophen [Tylenol .Regular Strength -] 650 mg PO Q6H PRN tablet 03/26/19 Amlodipine Besylate [Norvasc -] 10 mg PO DAILY tablet 03/26/19 Aspirin Coated [Ecotrin -] 81 mg PO DAILY tablet.ec 03/26/19 Carbidopa/Levodopa *Cr* 25/100 [Sinemet *Cr* 25/100 -] 0.5 combo PO TIDCM tablet.er 03/26/19 Carbidopa/Levodopa *Cr* 25/100 [Sinemet *Cr* 25/100 -] 1 combo PO TIDCM tablet.er 03/26/19 Celecoxib [CeleBREX -] 100 mg PO BID capsule 03/26/19 Celecoxib [CeleBREX -] 100 mg PO BID PRN capsule 03/26/19 Insulin Sliding Scale [Novolog Vial Sliding Scale -] 1 vial SQ ACHS units 03/26 Losartan Potassium [Cozaar -] 100 mg PO DAILY tablet 03/26/19 Metoprolol Succinate [Toprol XL -] 100 mg PO DAILY tab.sr.24h 03/26/19 Pramipexole Dihydrochloride [Mirapex -] 0.25 mg PO HS tablet 03/26/19 Rosuvastatin [Crestor -] 20 mg PO HS tablet 03/26/19 Problem List - Problems (1) Fall Code(s): W19.XXXA - UNSPECIFIED FALL, INITIAL ENCOUNTER Qualifiers: Encounter type: subsequent encounter Qualified Code(s): W19.XXXD - Unspecified fall, subsequent encounter (2) Hypertension Code(s): I10 - ESSENTIAL (PRIMARY) HYPERTENSION Qualifiers: Hypertension type: essential hypertension Qualified Code(s): I10 - Essential (primary) hypertension (3) Near syncope Code(s): R55 - SYNCOPE AND COLLAPSE (4) Demand ischemia Code(s): I24.8 - OTHER FORMS OF ACUTE ISCHEMIC HEART DISEASE (5) Fall as cause of accidental injury in home as place of occurrence Code(s): W19.XXXA - UNSPECIFIED FALL, INITIAL ENCOUNTER; Y92.009 - UNSP PLACE IN UNSP NON-INSTITUT (PRIVATE) RESIDENCE PLACE (6) Prophylactic measure Code(s): Z29.9 - ENCOUNTER FOR PROPHYLACTIC MEASURES, UNSPECIFIED - Discharge Referral Referred to [facility] No
== END 2019-03-26 14:02 | DRG 57 ==
LOC: JER 11:24 → JERBED 15:47 → OBSVTOIN 17:07 → J4W 03-22 01:18
PROVIDERS: ADMIT Internal Medicine; ATTEND Nurse Practitioner Family
DX: G20 Parkinson's disease (principal); I67.4 Hypertensive encephalopathy; I24.8 Other forms of acute ischemic heart disease; R42 Dizziness and giddiness; I10 Essential (primary) hypertension; I25.119 Atherosclerotic heart disease of native coronary artery with unspecified angina pectoris; E11.9 Type 2 diabetes mellitus without complications; F17.210 Nicotine dependence, cigarettes, uncomplicated; E78.00 Pure hypercholesterolemia, unspecified; R26.0 Ataxic gait; E11.40 Type 2 diabetes mellitus with diabetic neuropathy, unspecified; J45.909 Unspecified asthma, uncomplicated; G25.81 Restless legs syndrome; H83.2X9 Labyrinthine dysfunction, unspecified ear; W18.39XA Other fall on same level, initial encounter; Y92.098 Other place in other non-institutional residence as the place of occurrence of the external cause; Z95.1 Presence of aortocoronary bypass graft
CPT/HCPCS: 36415; 70450-TC; 70544-TC; 70552-TC; 71045-TC-FY; 72125-TC; 80048; 80053; 80061; 81003; 82550; 82607; 82962; 83036; 83721; 83735; 84100; 84443; 84484; 85025; 87086; 87186; 93005; 93010; 97116-GP; 97161-GP; 99285-25; G0378; J1644

== ENCOUNTER 2022-10-14 06:29 | Inpatient (IN) | payer OTHER, MEDICARE ==
[2022-10-14 06:50] VITALS: BMI 35.9
[2022-10-14] MEDS ORDERED: SODIUM CHLORIDE 0.9% 500 ML INFUS.BAG IV ONE (07:56)
[2022-10-14] MEDS ORDERED: ACETAMINOPHEN 1000 MG/100 ML BAG IVPB ONE (07:56)
[2022-10-14] MEDS ORDERED: ONDANSETRON 4 MG/2 ML VIAL IVPUSH ONE (08:01)
[2022-10-14] MEDS ORDERED: ACETAMINOPHEN INJECTION 100 ML IVPB ONE ×2 (08:23→16:49)
[2022-10-14] MEDS ORDERED: ONDANSETRON 4 MG/2 ML VIAL ONE (08:23)
[2022-10-14 08:52] LABS: VENOUS BASE EXCESS 3.6 mmol/L (-2-2); VENOUS O2 SATURATION 53.7 % (70-80); VENOUS PCO2 50.1 mmHg (38-52); VENOUS PH 7.39 (7.310-7.410)
[2022-10-14 09:29] LABS: HEMATOCRIT 42.8 % (32.4-45.2); HEMOGLOBIN 13.5 GM/dL (10.7-15.3); MCH 26.8 pg (25.7-33.7); MCHC 31.6 g/dl (32.0-36.0); MEAN PLT VOLUME 8.8 fl (7.5-11.1); PLATELET COUNT 238 10^3/uL (134-434); RBC 5.04 M/mm3 (3.60-5.2); RDW 14.3 % (11.6-15.6); WHITE BLOOD COUNT 17.5 K/mm3 (4.0-10.0)
[2022-10-14 09:32] LABS: EPI CELLS 9 /uL (0-25.1); HYALINE CASTS 0 /uL (0-3.1); PH,URINE 7.5 (5.0-8.0); URINE APPEARANCE CLEAR; URINE BACTERIA 320 /uL (0-1359); URINE BILIRUBIN NEGATIVE (NEGATIVE); URINE COLOR YELLOW; URINE GLUCOSE (UA) 3+ (NEGATIVE); URINE KETONE TRACE (NEGATIVE); URINE LEUK ESTERASE NEGATIVE (NEGATIVE); URINE NITRITE NEGATIVE (NEGATIVE); URINE PROTEIN 2+ (NEGATIVE); URINE RBC 22 /uL (0-23.9); URINE WBC 5 /uL (0-25.8)
[2022-10-14 09:35] LABS: INR 1.13 (0.83-1.09); PROTHROMBIN TIME (PATIENT) 13.1 SEC (9.7-13.0)
[2022-10-14 09:38] LABS: ACTIVATED PTT 28.3 SECONDS (25.2-36.5)
[2022-10-14 10:08] LABS: ANISOCYTOSIS 1+; MACROCYTOSIS 0
[2022-10-14 10:10] LABS: CHLORIDE 95 mmol/L (98-107); POTASSIUM 4.4 mmol/L (3.5-5.1); SODIUM 135 mmol/L (136-145)
[2022-10-14 10:20] LABS: ALBUMIN 3.8 g/dl (3.4-5.0); ANION GAP 13 MMOL/L (8-16); BLOOD UREA NITROGEN 18.2 mg/dL (7-18); CALCIUM 9.2 mg/dL (8.5-10.1); CO2 27 mmol/L (21-32)
[2022-10-14 10:23] LABS: CREATININE 1.1 mg/dL (0.55-1.3); SGOT/AST 16 U/L (15-37); SGPT/ALT 13 U/L (13-61)
[2022-10-14 10:24] LABS: BILIRUBIN,TOTAL 0.8 mg/dL (0.2-1); TOT PROT 7.4 g/dl (6.4-8.2)
[2022-10-14 10:25] LABS: ALK PHOS 113 U/L (45-117)
[2022-10-14 10:51] LABS: GLUCOSE,RANDOM 411 mg/dL (74-106)
[2022-10-14] MEDS ORDERED: VANCOMYCIN 1 GM in D5W (PRE-DOCKED) 1,000 MG/250 ML (RESTRICTED TO ID ONLY IVPB ONE (11:14)
[2022-10-14] MEDS ORDERED: INSULIN (NOVOLOG) ASPART 100 UNITS/ML 10ML VIAL SQ ONE ×2 (11:16→13:59)
[2022-10-14] MEDS ORDERED: CEFEPIME HCL/D5W 1 GM/50 ML BAG IVPB ONE (12:12)
[2022-10-14] MEDS ORDERED: VANCOMYCIN/WATER FOR INJ (PEG) 1,000 MG/200 ML BAG IVPB ONE (12:21)
[2022-10-14] MEDS ORDERED: CEFEPIME 1 GM/100 ML BAG IVPB ONE (12:22)
[2022-10-14] MEDS ORDERED: TAMSULOSIN HCL 0.4 MG CAP PO ONE (13:50)
[2022-10-14] MEDS ORDERED: INSULIN (LEVEMIR) 100 UNITS/ML UNITS SQ ONE ×2 (14:15→14:30)
[2022-10-14] MEDS ORDERED: TAMSULOSIN HCL 0.4 MG CAP ONE (14:29)
[2022-10-14] MEDS: SODIUM CHLORIDE 1,000 ML IV SCH (16:45)
[2022-10-14] MEDS: ACETAMINOPHEN 1000 MG/100 ML BAG IVPB PRN ×2 (16:50→19:36)
[2022-10-14] MEDS: INSULIN SLIDING SCALE (NOVOLOG) 1 VIAL SQ SCH ×2 (18:27→22:25)
[2022-10-14] MEDS ORDERED: ROSUVASTATIN CA 20 MG TABLET ONE (21:53)
[2022-10-14] MEDS ORDERED: HEPARIN NA (PORCINE) 5,000 UNITS/ML 1ML VIAL ONE (21:53)
[2022-10-14] MEDS: ROSUVASTATIN CA 20 MG TABLET PO SCH (21:59)
[2022-10-14] MEDS: HEPARIN NA (PORCINE) 5,000 UNITS/ML 1ML VIAL SQ SCH (21:59)
[2022-10-14] MEDS ORDERED: INSULIN (NOVOLOG) ASPART 100 UNITS/ML 10ML VIAL ONE (22:23)
[2022-10-15] MEDS: INSULIN SLIDING SCALE (NOVOLOG) 1 VIAL SQ SCH ×4 (06:35→21:31)
[2022-10-15] MEDS ORDERED: CEFEPIME HCL/D5W 1 GM/50 ML BAG IVPB ONE (09:00)
[2022-10-15] MEDS: LOSARTAN POTASSIUM 50 MG TABLET PO SCH (09:15)
[2022-10-15] MEDS: TAMSULOSIN HCL 0.4 MG CAP PO SCH (09:15)
[2022-10-15] MEDS: amLODIPine BESYLATE 10 MG TABLET (FP) PO SCH (09:15)
[2022-10-15] MEDS: HEPARIN NA (PORCINE) 5,000 UNITS/ML 1ML VIAL SQ SCH ×2 (09:15→21:30)
[2022-10-15] MEDS ORDERED: PATIENT'S OWN MEDICATION (NON-FORMULARY) (Olopatadine Hcl [Pazeo] 2.5 ML Drops) AD SCH (10:00)
[2022-10-15] MEDS ORDERED: CEFEPIME 1 GM in DEXTROSE 5%-WATER 100 ML IVPB ONE (10:00)
[2022-10-15 10:43] LABS: BASO % 0.3 % (0-2.0); EOS % 0.1 % (0-4.5); HEMATOCRIT 35.8 % (32.4-45.2); HEMOGLOBIN 11.5 GM/dL (10.7-15.3); LYMPH % 5.2 % (8-40); MCH 27.3 pg (25.7-33.7); MEAN CELL VOLUME 85.3 fl (80-96); MEAN PLT VOLUME 8.9 fl (7.5-11.1); MONO % 5.1 % (3.8-10.2); NEUT % 89.3 % (42.8-82.8); PLATELET COUNT 180 10^3/uL (134-434); RDW 14.4 % (11.6-15.6)
[2022-10-15 10:59] LABS: CALCIUM 8.1 mg/dL (8.5-10.1)
[2022-10-15 11:00] LABS: BLOOD UREA NITROGEN 22.7 mg/dL (7-18)
[2022-10-15 11:03] LABS: CREATININE 1.4 mg/dL (0.55-1.3)
[2022-10-15 11:05] LABS: BILIRUBIN,TOTAL 0.4 mg/dL (0.2-1)
[2022-10-15 11:15] LABS: ALBUMIN 2.4 g/dl (3.4-5.0); TOT PROT 5.4 g/dl (6.4-8.2)
[2022-10-15] MEDS: SODIUM CHLORIDE 1,000 ML IV SCH ×2 (15:59)
[2022-10-15] MEDS: CEFEPIME 1 GM in DEXTROSE 5%-WATER 100 ML IVPB SCH (17:50)
[2022-10-15] MEDS ORDERED: VANCOMYCIN 1 GM in D5W (PRE-DOCKED) 1,000 MG/250 ML (RESTRICTED TO ID ONLY IVPB ONE (18:08)
[2022-10-15] MEDS ORDERED: VANCOMYCIN/WATER FOR INJ (PEG) 1,000 MG/200 ML BAG IVPB ONE (18:15)
[2022-10-15] MEDS: ROSUVASTATIN CA 20 MG TABLET PO SCH (21:29)
[2022-10-15] MEDS ORDERED: INSULIN (LEVEMIR) 100 UNITS/ML UNITS SQ SCH (22:00)
[2022-10-16] MEDS: CEFEPIME 1 GM in DEXTROSE 5%-WATER 100 ML IVPB SCH ×2 (01:10→09:14)
[2022-10-16] MEDS: INSULIN SLIDING SCALE (NOVOLOG) 1 VIAL SQ SCH ×4 (06:17→21:35)
[2022-10-16] MEDS ORDERED: INSULIN (NOVOLOG) ASPART 100 UNITS/ML 10ML VIAL ONE ×2 (06:54→11:28)
[2022-10-16 09:13] LABS: HEMATOCRIT 35.2 % (32.4-45.2); HEMOGLOBIN 11.3 GM/dL (10.7-15.3); MCH 26.9 pg (25.7-33.7); MCHC 32.1 g/dl (32.0-36.0); MEAN CELL VOLUME 83.9 fl (80-96); MEAN PLT VOLUME 8.6 fl (7.5-11.1); PLATELET COUNT 161 10^3/uL (134-434); RDW 14.4 % (11.6-15.6); WHITE BLOOD COUNT 6.2 K/mm3 (4.0-10.0)
[2022-10-16] MEDS: LOSARTAN POTASSIUM 50 MG TABLET PO SCH (09:17)
[2022-10-16] MEDS: amLODIPine BESYLATE 10 MG TABLET (FP) PO SCH (09:17)
[2022-10-16] MEDS: TAMSULOSIN HCL 0.4 MG CAP PO SCH (09:17)
[2022-10-16] MEDS: HEPARIN NA (PORCINE) 5,000 UNITS/ML 1ML VIAL SQ SCH ×2 (09:18→21:34)
[2022-10-16 09:28] LABS: CALCIUM 8.1 mg/dL (8.5-10.1); POTASSIUM 3.8 mmol/L (3.5-5.1)
[2022-10-16 09:29] LABS: BLOOD UREA NITROGEN 23.4 mg/dL (7-18)
[2022-10-16 09:32] LABS: CREATININE 1.1 mg/dL (0.55-1.3)
[2022-10-16] MEDS ORDERED: BISACODYL 10 MG SUPP.RECT PR ONE (12:15)
[2022-10-16] MEDS: VANCOMYCIN/WATER FOR INJ (PEG) 1,000 MG/200 ML BAG IVPB SCH (12:30)
[2022-10-16] MEDS: SODIUM CHLORIDE 1,000 ML IV SCH (16:41)
[2022-10-16] MEDS: ROSUVASTATIN CA 20 MG TABLET PO SCH (21:34)
[2022-10-16] MEDS: INSULIN (LEVEMIR) 100 UNITS/ML UNITS SQ SCH (21:35)
[2022-10-16] MEDS: ACETAMINOPHEN 325 MG TABLET (FP) PO PRN (21:36)
[2022-10-17] MEDS: VANCOMYCIN/WATER FOR INJ (PEG) 1,000 MG/200 ML BAG IVPB SCH ×2 (00:26→12:08)
[2022-10-17] MEDS: INSULIN SLIDING SCALE (NOVOLOG) 1 VIAL SQ SCH ×4 (06:09→22:09)
[2022-10-17] MEDS: TAMSULOSIN HCL 0.4 MG CAP PO SCH (08:35)
[2022-10-17 09:26] LABS: HEMATOCRIT 34.5 % (32.4-45.2); HEMOGLOBIN 11.3 GM/dL (10.7-15.3); MCHC 32.7 g/dl (32.0-36.0); MEAN CELL VOLUME 82.5 fl (80-96); MEAN PLT VOLUME 8.6 fl (7.5-11.1); PLATELET COUNT 154 10^3/uL (134-434); RBC 4.18 M/mm3 (3.60-5.2); RDW 14.6 % (11.6-15.6); WHITE BLOOD COUNT 4.8 K/mm3 (4.0-10.0)
[2022-10-17] MEDS: HEPARIN NA (PORCINE) 5,000 UNITS/ML 1ML VIAL SQ SCH ×2 (09:50→22:07)
[2022-10-17] MEDS: LOSARTAN POTASSIUM 50 MG TABLET PO SCH (09:50)
[2022-10-17] MEDS: amLODIPine BESYLATE 10 MG TABLET (FP) PO SCH (09:51)
[2022-10-17] MEDS: INSULIN (LEVEMIR) 100 UNITS/ML UNITS SQ SCH ×2 (09:51→22:10)
[2022-10-17 10:24] LABS: POTASSIUM 3.9 mmol/L (3.5-5.1)
[2022-10-17 10:27] LABS: BLOOD UREA NITROGEN 19.1 mg/dL (7-18); CALCIUM 8.1 mg/dL (8.5-10.1)
[2022-10-17 10:31] LABS: CREATININE 0.8 mg/dL (0.55-1.3)
[2022-10-17] MEDS: SODIUM CHLORIDE 1,000 ML IV SCH (19:23)
[2022-10-17] MEDS ORDERED: INSULIN (NOVOLOG) ASPART 100 UNITS/ML 10ML VIAL ONE (21:34)
[2022-10-17] MEDS: ROSUVASTATIN CA 20 MG TABLET PO SCH (22:07)
[2022-10-18] MEDS: INSULIN SLIDING SCALE (NOVOLOG) 1 VIAL SQ SCH ×4 (06:24→21:54)
[2022-10-18] MEDS: TAMSULOSIN HCL 0.4 MG CAP PO SCH (08:34)
[2022-10-18] MEDS: amLODIPine BESYLATE 10 MG TABLET (FP) PO SCH (09:20)
[2022-10-18] MEDS: LOSARTAN POTASSIUM 50 MG TABLET PO SCH (09:20)
[2022-10-18] MEDS: HEPARIN NA (PORCINE) 5,000 UNITS/ML 1ML VIAL SQ SCH ×2 (09:21→21:47)
[2022-10-18] MEDS: INSULIN (LEVEMIR) 100 UNITS/ML UNITS SQ SCH ×2 (09:21→21:55)
[2022-10-18 10:38] LABS: HEMATOCRIT 36.4 % (32.4-45.2); HEMOGLOBIN 11.6 GM/dL (10.7-15.3); MCH 26.9 pg (25.7-33.7); MCHC 31.9 g/dl (32.0-36.0); MEAN CELL VOLUME 84.5 fl (80-96); MEAN PLT VOLUME 8.7 fl (7.5-11.1); PLATELET COUNT 179 10^3/uL (134-434); RBC 4.31 M/mm3 (3.60-5.2); RDW 14.1 % (11.6-15.6); WHITE BLOOD COUNT 5.5 K/mm3 (4.0-10.0)
[2022-10-18 11:16] LABS: POTASSIUM 4.2 mmol/L (3.5-5.1)
[2022-10-18 11:40] LABS: CALCIUM 8.4 mg/dL (8.5-10.1)
[2022-10-18 11:41] LABS: BLOOD UREA NITROGEN 15.8 mg/dL (7-18)
[2022-10-18 11:44] LABS: CREATININE 0.8 mg/dL (0.55-1.3)
[2022-10-18] MEDS: VANCOMYCIN/WATER FOR INJ (PEG) 1,000 MG/200 ML BAG IVPB SCH (13:56)
[2022-10-18] MEDS ORDERED: BISACODYL 5 MG TABLET.DR (FP) PO PRN (15:50)
[2022-10-18] MEDS: INSULIN (NOVOLOG) ASPART 100 UNITS/ML 10ML VIAL SQ SCH (16:44)
[2022-10-18] MEDS: SODIUM CHLORIDE 1,000 ML IV SCH (16:45)
[2022-10-18] MEDS: ROSUVASTATIN CA 20 MG TABLET PO SCH (21:46)
[2022-10-19] MEDS: INSULIN (NOVOLOG) ASPART 100 UNITS/ML 10ML VIAL SQ SCH ×3 (06:00→17:10)
[2022-10-19] MEDS: INSULIN SLIDING SCALE (NOVOLOG) 1 VIAL SQ SCH ×4 (06:00→22:03)
[2022-10-19] MEDS ORDERED: INSULIN (LEVEMIR) 100 UNITS/ML UNITS SQ ONE (06:35)
[2022-10-19] MEDS ORDERED: INSULIN (NOVOLOG) ASPART 100 UNITS/ML 10ML VIAL ONE ×2 (06:35→11:45)
[2022-10-19] MEDS: TAMSULOSIN HCL 0.4 MG CAP PO SCH (08:08)
[2022-10-19] MEDS: SODIUM CHLORIDE 1,000 ML IV SCH (08:37)
[2022-10-19 10:05] LABS: HEMATOCRIT 35.6 % (32.4-45.2); HEMOGLOBIN 11.3 GM/dL (10.7-15.3); MCH 26.9 pg (25.7-33.7); MCHC 31.9 g/dl (32.0-36.0); MEAN CELL VOLUME 84.5 fl (80-96); MEAN PLT VOLUME 8.6 fl (7.5-11.1); PLATELET COUNT 190 10^3/uL (134-434); RBC 4.21 M/mm3 (3.60-5.2); RDW 14.3 % (11.6-15.6)
[2022-10-19] MEDS: amLODIPine BESYLATE 10 MG TABLET (FP) PO SCH (10:12)
[2022-10-19] MEDS: LOSARTAN POTASSIUM 50 MG TABLET PO SCH (10:13)
[2022-10-19] MEDS: HEPARIN NA (PORCINE) 5,000 UNITS/ML 1ML VIAL SQ SCH ×2 (10:13→22:03)
[2022-10-19 10:51] LABS: POTASSIUM 4.2 mmol/L (3.5-5.1)
[2022-10-19 10:52] LABS: BLOOD UREA NITROGEN 12.2 mg/dL (7-18); CALCIUM 8.4 mg/dL (8.5-10.1)
[2022-10-19 10:56] LABS: CREATININE 0.7 mg/dL (0.55-1.3)
[2022-10-19] MEDS: INSULIN (LEVEMIR) 100 UNITS/ML UNITS SQ SCH (11:12)
[2022-10-19] MEDS: VANCOMYCIN/WATER FOR INJ (PEG) 1,000 MG/200 ML BAG IVPB SCH (13:34)
[2022-10-19] MEDS: FUROSEMIDE 20 MG TABLET (FP) PO SCH (13:39)
[2022-10-19] MEDS ORDERED: INSULIN (LEVEMIR) 100 UNITS/ML UNITS SQ SCH (22:00)
[2022-10-19] MEDS: ROSUVASTATIN CA 20 MG TABLET PO SCH (22:03)
[2022-10-20] MEDS: INSULIN (LEVEMIR) 100 UNITS/ML UNITS SQ SCH ×2 (06:09→21:20)
[2022-10-20] MEDS: INSULIN SLIDING SCALE (NOVOLOG) 1 VIAL SQ SCH ×4 (06:10→21:22)
[2022-10-20] MEDS: INSULIN (NOVOLOG) ASPART 100 UNITS/ML 10ML VIAL SQ SCH ×3 (06:10→17:18)
[2022-10-20] MEDS ORDERED: DEXTROSE 50%-WATER 25 GM/50 ML DISP.SYRIN ONE (07:40)
[2022-10-20] MEDS ORDERED: DEXTROSE 50%-WATER 25 GM/50 ML DISP.SYRIN IVPUSH ONE (08:03)
[2022-10-20] MEDS: TAMSULOSIN HCL 0.4 MG CAP PO SCH (08:09)
[2022-10-20 08:35] LABS: HEMATOCRIT 39.9 % (32.4-45.2); HEMOGLOBIN 13.4 GM/dL (10.7-15.3); MCH 27.8 pg (25.7-33.7); MCHC 33.6 g/dl (32.0-36.0); MEAN CELL VOLUME 82.6 fl (80-96); PLATELET COUNT 239 10^3/uL (134-434); RBC 4.84 M/mm3 (3.60-5.2); RDW 14.7 % (11.6-15.6); WHITE BLOOD COUNT 9.9 K/mm3 (4.0-10.0)
[2022-10-20 08:52] LABS: POTASSIUM 3.8 mmol/L (3.5-5.1)
[2022-10-20 08:53] LABS: CALCIUM 9.3 mg/dL (8.5-10.1)
[2022-10-20 08:54] LABS: BLOOD UREA NITROGEN 14.8 mg/dL (7-18)
[2022-10-20 08:57] LABS: CREATININE 0.8 mg/dL (0.55-1.3)
[2022-10-20] MEDS: LOSARTAN POTASSIUM 50 MG TABLET PO SCH (09:43)
[2022-10-20] MEDS: HEPARIN NA (PORCINE) 5,000 UNITS/ML 1ML VIAL SQ SCH ×2 (09:44→21:20)
[2022-10-20] MEDS: FUROSEMIDE 20 MG TABLET (FP) PO SCH (09:44)
[2022-10-20] MEDS: amLODIPine BESYLATE 10 MG TABLET (FP) PO SCH (09:44)
[2022-10-20] MEDS: ACETAMINOPHEN 325 MG TABLET (FP) PO PRN (11:32)
[2022-10-20] MEDS: VANCOMYCIN/WATER FOR INJ (PEG) 1,000 MG/200 ML BAG IVPB SCH ×2 (13:42→15:16)
[2022-10-20] MEDS: ROSUVASTATIN CA 20 MG TABLET PO SCH (21:20)
[2022-10-20] MEDS ORDERED: VANCOMYCIN 500 MG in DEXTROSE 5%-WATER 100 ML IVPB ONE (22:00)
[2022-10-21] MEDS: INSULIN (LEVEMIR) 100 UNITS/ML UNITS SQ SCH ×2 (06:42→21:21)
[2022-10-21] MEDS: INSULIN (NOVOLOG) ASPART 100 UNITS/ML 10ML VIAL SQ SCH ×3 (06:42→16:33)
[2022-10-21] MEDS: INSULIN SLIDING SCALE (NOVOLOG) 1 VIAL SQ SCH ×4 (06:43→21:51)
[2022-10-21] MEDS: TAMSULOSIN HCL 0.4 MG CAP PO SCH (08:28)
[2022-10-21 09:27] LABS: HEMATOCRIT 34.6 % (32.4-45.2); HEMOGLOBIN 11.3 GM/dL (10.7-15.3); MCH 27.3 pg (25.7-33.7); MCHC 32.8 g/dl (32.0-36.0); MEAN CELL VOLUME 83.3 fl (80-96); MEAN PLT VOLUME 7.9 fl (7.5-11.1); PLATELET COUNT 200 10^3/uL (134-434); RBC 4.15 M/mm3 (3.60-5.2); RDW 14.7 % (11.6-15.6); WHITE BLOOD COUNT 7.3 K/mm3 (4.0-10.0)
[2022-10-21 09:48] LABS: POTASSIUM 4.2 mmol/L (3.5-5.1)
[2022-10-21 10:00] LABS: CALCIUM 8.6 mg/dL (8.5-10.1)
[2022-10-21 10:04] LABS: CREATININE 0.9 mg/dL (0.55-1.3)
[2022-10-21] MEDS: FUROSEMIDE 20 MG TABLET (FP) PO SCH (10:06)
[2022-10-21] MEDS: amLODIPine BESYLATE 10 MG TABLET (FP) PO SCH (10:06)
[2022-10-21] MEDS: LOSARTAN POTASSIUM 50 MG TABLET PO SCH (10:06)
[2022-10-21] MEDS: HEPARIN NA (PORCINE) 5,000 UNITS/ML 1ML VIAL SQ SCH ×2 (10:07→21:20)
[2022-10-21] MEDS: ACETAMINOPHEN 1000 MG/100 ML BAG IVPB PRN (14:10)
[2022-10-21] MEDS: VANCOMYCIN/WATER FOR INJ (PEG) 1,000 MG/200 ML BAG IVPB SCH (14:15)
[2022-10-21 14:44] VITALS: RESP 18
[2022-10-21] MEDS ORDERED: INSULIN (NOVOLOG) ASPART 100 UNITS/ML 10ML VIAL ONE (18:47)
[2022-10-21] MEDS: ROSUVASTATIN CA 20 MG TABLET PO SCH (21:20)
[2022-10-21] MEDS ORDERED: VANCOMYCIN 500 MG in DEXTROSE 5%-WATER 100 ML IVPB ONE (22:00)
[2022-10-22] MEDS: INSULIN SLIDING SCALE (NOVOLOG) 1 VIAL SQ SCH ×2 (06:07→11:14)
[2022-10-22] MEDS: INSULIN (LEVEMIR) 100 UNITS/ML UNITS SQ SCH (06:07)
[2022-10-22] MEDS: INSULIN (NOVOLOG) ASPART 100 UNITS/ML 10ML VIAL SQ SCH ×2 (06:07→11:14)
[2022-10-22] MEDS: LOSARTAN POTASSIUM 50 MG TABLET PO SCH (09:41)
[2022-10-22] MEDS: TAMSULOSIN HCL 0.4 MG CAP PO SCH (09:41)
[2022-10-22] MEDS: FUROSEMIDE 20 MG TABLET (FP) PO SCH (09:42)
[2022-10-22] MEDS: amLODIPine BESYLATE 10 MG TABLET (FP) PO SCH (09:42)
[2022-10-22] MEDS ORDERED: VANCOMYCIN 1 GM/200 ML PREMIX BAG (RESTRICTED TO ID ONLY) IVPB ONE ×2 (10:15→11:00)
[2022-10-22] MEDS ORDERED: INSULIN (NOVOLOG) ASPART 100 UNITS/ML 10ML VIAL ONE (10:59)
[2022-10-22 14:44] VITALS: BP 134/58; PULSE 71; TEMP 99.2
== END 2022-10-22 17:15 | disposition home or self-care (01) | DRG 872 ==
LOC: JER 06:29 → JERBED 13:55 → OBSVTOIN 14:01 → J6S 23:15
PROVIDERS: ADMIT Internal Medicine; ATTEND Internal Medicine
DX: A41.50 Gram-negative sepsis, unspecified (principal); N39.0 Urinary tract infection, site not specified; N17.9 Acute kidney failure, unspecified; N13.2 Hydronephrosis with renal and ureteral calculous obstruction; E11.65 Type 2 diabetes mellitus with hyperglycemia; I10 Essential (primary) hypertension; J44.9 Chronic obstructive pulmonary disease, unspecified; G20 Parkinson's disease; I25.10 Atherosclerotic heart disease of native coronary artery without angina pectoris; E78.5 Hyperlipidemia, unspecified; R91.1 Solitary pulmonary nodule; K59.00 Constipation, unspecified; Z95.1 Presence of aortocoronary bypass graft; E66.9 Obesity, unspecified; Z68.35 Body mass index [BMI] 35.0-35.9, adult
CPT/HCPCS: 36415; 71045-TC-FY; 71250-TC; 73030-TC-LT-FY; 74177-TC; 80048; 80053; 81003; 82010; 82803; 82962; 83036; 83690; 84443; 84484; 85025; 85027; 85610; 85730; 86850; 86900; 86901; 87040; 87086; 87186; 97116-GP; 97161-GP; 99285-25; G0378; G0480; J1644; Q9967

== ENCOUNTER 2022-11-29 09:31 | Inpatient (IN) | payer OTHER, MEDICARE ==
[2022-11-29] MEDS ORDERED: RAPID SEQUENCE INTUBATION KIT NR ONE (09:37)
[2022-11-29] MEDS ORDERED: ROCURONIUM BROMIDE 50 MG/5 ML VIAL IV ONE (09:53)
[2022-11-29] MEDS ORDERED: VANCOMYCIN 1,000 MG in DEXTROSE 5%-WATER - 250 ML IVPB ONE (10:09)
[2022-11-29] MEDS ORDERED: VANCOMYCIN/WATER FOR INJ (PEG) 1,000 MG/200 ML BAG IVPB ONE (10:43)
[2022-11-29 10:45] LABS: VENOUS BASE EXCESS -11.1 mmol/L (-2-2); VENOUS O2 SATURATION 45.2 % (70-80)
[2022-11-29 10:48] LABS: CHLORIDE 103 mmol/L (98-107); POTASSIUM 4.2 mmol/L (3.5-5.1); SODIUM 138 mmol/L (136-145)
[2022-11-29 10:48] LABS: VENOUS PH 6.995 (7.310-7.410)
[2022-11-29] MEDS ORDERED: NOREPINEPHRINE BITARTRATE/D5W 8 MG/250 ML BAG IVPB ONE (10:48)
[2022-11-29 10:49] LABS: CALCIUM 8.8 mg/dL (8.5-10.1)
[2022-11-29 10:50] LABS: ALBUMIN 3.4 g/dl (3.4-5.0); ANION GAP 13 MMOL/L (8-16); CO2 22 mmol/L (21-32)
[2022-11-29 10:52] LABS: BG HCT 46.8 % (32.4-45.2)
[2022-11-29 10:53] LABS: VENOUS PCO2 94.5 mmHg (38-52)
[2022-11-29 10:53] LABS: CREATININE 1.4 mg/dL (0.55-1.3); SGPT/ALT 40 U/L (13-61)
[2022-11-29 10:54] LABS: SGOT/AST 71 U/L (15-37)
[2022-11-29 10:55] LABS: CHOLESTEROL 267 mg/dL (50-200)
[2022-11-29 10:56] LABS: BILIRUBIN,TOTAL 0.6 mg/dL (0.2-1); LDL CHOLESTEROL (ONLY SJRH) 195 mg/dL (5-100)
[2022-11-29 10:58] LABS: ALK PHOS 110 U/L (45-117); HDL CHOLESTEROL 43 mg/dL (40-60)
[2022-11-29 10:58] LABS: BASO % 0.4 % (0-2.0); EOS % 0.4 % (0-4.5); HEMATOCRIT 42.9 % (32.4-45.2); HEMOGLOBIN 13.1 GM/dL (10.7-15.3); LYMPH % 19.3 % (8-40); MCH 26.4 pg (25.7-33.7); MCHC 30.5 g/dl (32.0-36.0); MEAN CELL VOLUME 86.6 fl (80-96); MEAN PLT VOLUME 8.6 fl (7.5-11.1); MONO % 5.4 % (3.8-10.2); NEUT % 74.5 % (42.8-82.8); PLATELET COUNT 322 10^3/uL (134-434); RBC 4.95 M/mm3 (3.60-5.2); RDW 15.7 % (11.6-15.6); WHITE BLOOD COUNT 17.7 K/mm3 (4.0-10.0)
[2022-11-29 11:02] LABS: GLUCOSE,RANDOM 497 mg/dL (74-106)
[2022-11-29 11:09] LABS: ACTIVATED PTT 29.4 SECONDS (25.2-36.5); INR 1.12 (0.83-1.09)
[2022-11-29 11:16] LABS: LACTIC ACID 10.1 mmol/L (0.4-2.0)
[2022-11-29] MEDS ORDERED: NOREPINEPHRINE BITARTRATE/D5W 8 MG/250 ML BAG IVPB SCH (11:45)
[2022-11-29] MEDS ORDERED: NOREPINEPHRINE BITARTRATE 4,000 MCG in DEXTROSE 5%-WATER - 496 ML IV SCH (12:00)
[2022-11-29] MEDS ORDERED: PROPOFOL 1,000,000 MCG/100 ML VIAL IVPB SCH (12:45)
[2022-11-29] MEDS ORDERED: PROPOFOL 1,000,000 MCG/100 ML VIAL ONE (12:55)
[2022-11-29] MEDS ORDERED: VASOPRESSIN 20 UNITS/ML VIAL IV ONE (13:44)
[2022-11-29] MEDS ORDERED: VASOPRESSIN 40 UNITS/100 ML BAG IV SCH (13:45)
[2022-11-29] MEDS ORDERED: HEPARIN NA (PORCINE) 5,000 UNITS/ML 1ML VIAL SQ SCH (14:00)
[2022-11-29 14:50] VITALS: BMI 38.4
[2022-11-29 15:52] VITALS: RESP 25
[2022-11-29] MEDS ORDERED: INSULIN SLIDING SCALE (NOVOLOG) 1 VIAL SQ SCH (16:30)
[2022-11-29 17:01] VITALS: BP 89/66; TEMP 97.2
[2022-11-29 17:02] VITALS: PULSE 0
[2022-11-29] MEDS ORDERED: PIPERACILLIN/TAZOB 3.375 GM 3.375 GM in DEXTROSE 5%-WATER - 50 ML IVPB SCH (18:00)
[2022-11-29] MEDS ORDERED: MUPIROCIN 2% TOPICAL OINTMENT FOR DECOLONIZATION NS SCH (22:00)
[2022-11-29] MEDS ORDERED: CHLORHEXIDINE GLUCONATE 4% CLEANSER FOR DECOLONIZATION TP SCH (22:00)
[2022-11-30] MEDS ORDERED: ENOXAPARIN NA (PORCINE) 40 MG/0.4 ML DISP.SYRIN SQ SCH (10:00)
== END 2022-11-29 19:25 | disposition expired | DRG 208 ==
LOC: JER 09:31 → JICU 11:49
PROVIDERS: ADMIT Internal Medicine Pulmonary Disease; ATTEND Internal Medicine Pulmonary Disease
PROC: 5A1935Z Respiratory Ventilation, Less than 24 Consecutive Hours (ICD-10-PCS; principal; 2022-11-29)
PROC: 0BH17EZ Insertion of Endotracheal Airway into Trachea, Via Natural or Artificial Opening (ICD-10-PCS; 2022-11-29)
PROC: 5A12012 Performance of Cardiac Output, Single, Manual (ICD-10-PCS; 2022-11-29)
DX: J96.02 Acute respiratory failure with hypercapnia (principal); I71.30 Abdominal aortic aneurysm, ruptured, unspecified; A41.9 Sepsis, unspecified organism; I63.9 Cerebral infarction, unspecified; J18.9 Pneumonia, unspecified organism; E87.4 Mixed disorder of acid-base balance; I10 Essential (primary) hypertension; G20 Parkinson's disease; E11.9 Type 2 diabetes mellitus without complications; I25.10 Atherosclerotic heart disease of native coronary artery without angina pectoris; Z95.1 Presence of aortocoronary bypass graft; E78.5 Hyperlipidemia, unspecified
CPT/HCPCS: 0241U-QW; 36415; 70450-TC; 70486-TC; 71045-TC-FY; 71250-TC; 71275-TC; 72125-TC; 74174-TC; 80053; 80061; 82010; 82140; 82550; 82803; 83605; 84484; 85025; 85610; 85730; 87040; 93005; 93010; 93306-TC; 99285-25; J3490